=== PATIENT | male | born 1980 | race Caucasian/White ===

== ENCOUNTER 2021-06-09 14:56 | Inpatient (IN) | payer OTHER, SELFPAY ==
[~2021-06-09] VITALS: Ht 167.6 cm; Wt 74.8 kg
[2021-06-09 15:02] VITALS: BP 113/73
--- NOTE | 2021-06-09 15:07 | NUR ---
PT TAKEN TO BED 1.
--- NOTE | 2021-06-09 15:49 | NUR ---
40/M presents to ED with c/o shortness of breath. Patient states for 3 days he has been having worsening cough and shortness of breath. Patient states "it hurts my lungs to breathe." Reports taking Ibuprofen at home with mild relief. Patient appears short of breath and restless, oxygen saturation upon arrival to ED in the 70s. Dr. Bermudez, RT and RN at bedside, patient placed on highflow oxygen and placed on bedside monitor car operator.
[2021-06-09 16:10] LABS: BASOPHILS # (AUTO) 0.1 K/uL (0.00-0.22); BASOPHILS % (AUTO) 0.3 % (0.0-2.0); EOSINOPHILS % (AUTO) 0.1 % (0.0-4.0); HEMATOCRIT 44.7 % (36-52); HEMOGLOBIN 15.6 g/dL (12.0-18.0); LYMPHOCYTES # (AUTO) 0.8 K/uL (2.0-11.5); LYMPHOCYTES % (AUTO) 4.3 % (20.5-51.1); MEAN CORPUSCULAR HEMOGLOBIN 31 pg (27-31); MEAN CORPUSCULAR HGB CONC 35 g/dL (33-37); MEAN CORPUSCULAR VOLUME 88.7 fL (80-94); MONOCYTES # (AUTO) 0.9 K/uL (0.8-1.0); MONOCYTES % (AUTO) 4.8 % (1.7-9.3); NEUTROPHILS % (AUTO) 90.5 % (42.2-75.2); PLATELET COUNT (AUTO) 525 K/uL (140-450); RED BLOOD CELL COUNT(AUTO) 5.03 MIL/uL (4.20-6.10); RED CELL DISTRIBUTION WIDTH 13.4 % (11.6-13.7); WHITE BLOOD COUNT (AUTO) 18.8 K/uL (4.8-10.8)
--- NOTE | 2021-06-09 16:26 | NUR ---
yusra Mayo, flu and RSV swabs collected and walked to lab
[2021-06-09 16:28] LABS: PROTHROMBIN TIME 10.8 secs (10.8-13.4)
[2021-06-09 16:33] LABS: ALBUMIN 2.8 g/dL (3.4-5.0); ANION GAP 16.1 (8-16); CARBON DIOXIDE 25.8 mmol/L (21-32); POTASSIUM 3.9 mmol/L (3.5-5.1); TOTAL BILIRUBIN 0.8 mg/dL (0.0-1.0)
[2021-06-09 16:49] LABS: D-DIMER > 5000 ng/ml (0-400); FIBRINOGEN > 500 mg/dL (200-400)
[2021-06-09] MEDS ORDERED: ACETAMINOPHEN 325 MG TAB PO PRN (16:50)
[2021-06-09] MEDS ORDERED: NACL 0.9% 1,000 ML IV ONE (16:50)
[2021-06-09] MEDS ORDERED: HYDROcodone/APAP 5/325 MG 1 TAB TAB PO PRN (16:50)
[2021-06-09] MEDS ORDERED: LORazepam 2 MG/ML VIAL IVP PRN (16:50)
[2021-06-09] MEDS ORDERED: MORPHINE SULFATE 2 MG/ML SYR IVP PRN (16:50)
[2021-06-09 16:53] LABS: LACTATE DEHYDROGENASE 928 U/L (85-227)
[2021-06-09 17:13] LABS: C-REACTIVE PROTEIN QUANT 27.1 mg/dL (0.0-0.9)
[2021-06-09] MEDS ORDERED: AZITHROMYCIN 500 MG in DEXTROSE 5% 250 ML IV SCH (17:20)
[2021-06-09 17:23] LABS: RSV NEGATIVE (NEGATIVE)
[2021-06-09] MEDS ORDERED: AZITHROMYCIN 500 MG INJ VIAL IV ONE ×2 (17:28→19:33)
[2021-06-09 17:29] LABS: CREATINE KINASE MB 0.5 ng/mL (0-3.6)
--- NOTE | 2021-06-09 17:30 | NUR ---
Patient provided with urinal, states unable to provide urine at this time.
[2021-06-09] MEDS: NACL 0.9% 1,000 ML IV SCH (17:42)
[2021-06-09] MEDS ORDERED: cefTRIAXone 1,000 MG VIAL ONE (17:50)
--- NOTE | 2021-06-09 18:37 | NUR ---
Per patient okay to update girlfriend Meghana on patient condition.
--- NOTE | 2021-06-09 18:45 | NUR ---
Patient will be admitted to care of . Admited to ICU. Will go to room ICU 8. Belongings list completed. Report to Ari.
[2021-06-09 19:15] VITALS: BP 138/82
--- NOTE | 2021-06-09 19:15 | NUR ---
RECIEVED PT ADMISSION FROM ER NURSE, PT BIB VIA GURNEY, ABLE TO AMBULATE TO BEDS, A&OX4, ABLE TO MAKE NEEDS KNOWN AND FOLLOWS COMMANDS, AFEBRILE, VS: BP 138/82 VA 116 SPO2 91% RR 27, ON HF NC 40 LPM FIO2 100%, SKIN WARM DRY AND INTACT, FLACC 0, ABD SOFT AND NON TENDER TO TOUCH, RHONCHI AND CRACKLES UPON AUSCULTATION, RAC 20 G PIV INFUSING NS @ 80MLS/HR, PT ORIENTED TO UNIT, CALL LIGHT PLACED BEDSIDE, PT SHOWING NO SIGNS OF ACUTE DISTRESS, SAFETY MEASURES IN PLACE, WILL CONTINUE WITH CURRENT POC
[2021-06-09 19:30] LABS: APPEARANCE,URINE CLEAR (CLEAR); BILIRUBIN,URINE 1+ (NEGATIVE); BLOOD, URINE NEGATIVE (NEGATIVE); COLOR,URINE DARK YELLOW (YELLOW); LEUKOCYTE ESTERASE ,URINE NEGATIVE (NEGATIVE); NITRITE, URINE NEGATIVE (NEGATIVE); PH,URINE 6.5 (5.0-9.0); UGLUCOSE NEGATIVE (NEGATIVE)
[2021-06-09 19:44] VITALS: BP 138/82
[2021-06-09 20:00] VITALS: BP 126/92
[2021-06-09 20:02] LABS: COARSE GRANULAR CASTS,URINE 0-10 /LPF (None Seen); FINE GRANULAR CASTS,URINE 0-10 /LPF (None Seen); RBC,URINE 0-5 /HPF (0-5); WBC,URINE 0-5 /HPF (0-5)
[2021-06-09] MEDS: AZITHROMYCIN 500 MG in DEXTROSE 5% 250 ML IV SCH (21:06)
[2021-06-09] MEDS: APIXABAN 2.5 MG TAB PO SCH (21:09)
--- NOTE | 2021-06-09 21:10 | NUR ---
ADMINISTERED 2100 MEDICATIONS PER MD ORDERS
--- NOTE | 2021-06-09 23:49 | NUR ---
PT IS DRAWING IN NOTE BOOK, FLACC 0, NO SIGNS OF ACUTE DISTRESS
[2021-06-10] VITALS (8 sets, daily range): BP systolic 119–139; BP diastolic 74–92
--- NOTE | 2021-06-10 01:48 | NUR ---
PT SEEMS TO BE ASLEEP AND SHOWING NO SIGNS OF ACUTE DISTRESS
--- NOTE | 2021-06-10 03:49 | NUR ---
PT APPEARS TO BE ASLEEP AND SHOWING NO SIGNS OF ACUTE DISTRESS
[2021-06-10] MEDS: NACL 0.9% 1,000 ML IV SCH ×2 (05:20→17:42)
[2021-06-10 05:50] LABS: BASOPHILS % (AUTO) 0.2 % (0.0-2.0); HEMATOCRIT 40.8 % (36-52); HEMOGLOBIN 14.2 g/dL (12.0-18.0); LYMPHOCYTES # (AUTO) 1.3 K/uL (2.0-11.5); LYMPHOCYTES % (AUTO) 6.6 % (20.5-51.1); MEAN CORPUSCULAR HEMOGLOBIN 31 pg (27-31); MEAN CORPUSCULAR HGB CONC 35 g/dL (33-37); MEAN CORPUSCULAR VOLUME 88.9 fL (80-94); MONOCYTES # (AUTO) 1.4 K/uL (0.8-1.0); NEUTROPHILS # (AUTO) 16.9 K/uL (1.8-7.7); NEUTROPHILS % (AUTO) 86.2 % (42.2-75.2); PLATELET COUNT (AUTO) 388 K/uL (140-450); RED BLOOD CELL COUNT(AUTO) 4.59 MIL/uL (4.20-6.10); RED CELL DISTRIBUTION WIDTH 13.7 % (11.6-13.7); WHITE BLOOD COUNT (AUTO) 19.6 K/uL (4.8-10.8)
--- NOTE | 2021-06-10 05:59 | NUR ---
PT RESTING, WATCHING TV AND SHOWING NO SIGNS OF ACUTE DISTRESS
[2021-06-10 06:06] LABS: ALBUMIN 2.5 g/dL (3.4-5.0); ANION GAP 15.8 (8-16); CARBON DIOXIDE 24.5 mmol/L (21-32); CREATININE 0.8 mg/dL (0.6-1.3); MAGNESIUM 2.3 mg/dL (1.8-2.4); POTASSIUM 4.3 mmol/L (3.5-5.1); TOTAL BILIRUBIN 0.5 mg/dL (0.0-1.0)
--- NOTE | 2021-06-10 07:19 | NUR ---
ENDORSED TO DAY SHIFT RN FOR CONTINUITY OF CARE
--- NOTE | 2021-06-10 07:30 | NUR ---
REPORT RECEIVED FROM TERRI JANE FOR CONTINUITY OF CARE. PT IS A&OX4, ABLE TO MAKE NEEDS KNOWN AND FOLLOWS COMMANDS. ON HIGH FLOW, NC 40 LPM FIO2 100%, SKIN WARM DRY AND INTACT, DENIES PAIN ABD SOFT AND NON TENDER TO TOUCH, LUNG SOUNDS RHONCHI AND CRACKLES, IV SITE RAC 20 G IV INFUSING NS @ 80MLS/HR. CALL LIGHT WITHIN REACH. SAFETY MEASURES IN PLACE, WILL CONTINUE TO MONITOR.
--- NOTE | 2021-06-10 08:01 | NUR ---
PATIENT HAS BEEN SCREENED AND CATEGORIZED HIGH NUTRITION RISK. PATIENT WILL BE SEEN WITHIN 1-2 DAYS OF ADMISSION. 06/10/21-06/11/[address]
[2021-06-10] MEDS: DEXAMETHASONE 4 MG/ML VIAL IVP SCH (08:53)
[2021-06-10] MEDS: ASPIRIN 81 MG TAB.CHEW PO SCH (08:54)
[2021-06-10] MEDS: APIXABAN 2.5 MG TAB PO SCH ×2 (08:55→20:46)
--- NOTE | 2021-06-10 09:00 | NUR ---
RECEIVED CALL FROM PT'S SIGNIFICANT OTHER SONU(GIRLFRIEND). UPDATED ON PT STATUS, ALL QUESTIONS AND CONCERNS ANSWERED AT THIS TIME. [phone]
--- NOTE | 2021-06-10 09:30 | NUR ---
PT DESATURATING O2 84%, RT CALLED TO BEDSIDE. NO DISTRESS NOTED.
--- NOTE | 2021-06-10 09:34 | NUR ---
CALLED DR. JOHN BORREGO AT [facility] [phone] IN REGARDS TO [facility] THERAPY SPOKE TO MELISSA SHE WILL PAGE THE FOREMENTIONED MD CALL BACK NUMBER GIVEN [phone]
--- NOTE | 2021-06-10 09:44 | NUR ---
CALL BACK FROM DR. JOHN BORREGO REVIEWED PATIENT PULMONARY, COVID, HIGH FLOW AND DIAGNOSTIC STATUS VORBO: [place] FOR CABINETMAKER SUPERVISOR TO PLACE ORDER FOLLOW: [facility] THERAPY Q4PRN FOR SOB/WHEEZE WITH DUONEB
--- NOTE | 2021-06-10 10:20 | NUR ---
DR BRO AT BEDSIDE EXAMINING PT
--- NOTE | 2021-06-10 11:02 | NUR ---
DC PLANNING: SPOKE WITH NADEEN DASILVA FOR [facility], VERBAL CLINICAL INFORMATION GIVEN FOR CONTINUED AUTHORIZATION. CM WILL FOLLOW FOR NEEDS. Addendum: 06/10/21 at 1157 by Randa Prasad RN DC PLANNIN YRS OLD MALE PATIENT WAS ADMITTED FROM HOME WITH A DX OF COVID. PATIENT HAS NO MEDICAL HISTORY. CXR SHOWED BILATERAL PATCHY MULTIFOCAL INFILTRATES, GREATEST IN THE PERIPHERAL MIDLUNG ZONE SUSPICIOUS FOR COVID 19 PNEUMONIA. RAPID COVID TEST NEGATIVE PCR IS PENDING. ON HIGH FLOW OXYGEN 40L/NC FIO2 100% SATING 93% ADMINISTERED IVF IV ABX ROCEPHIN AND AZITHROMYCIN AND DECADRON.CONSULTED WITH JOHNNIE. DC PLAN TO GO HOME WHEN STABLE CM TO FOLLOW Addendum: 06/15/21 at 1431 by Randa Prasad RN DC PLANNING: REMAIN IN ICU ON HF VIA NASAL CANNULA AT 40L/NC WITH FIO2 80% CONTINUE IV ABX AZITHROMYCIN , ROCEPHIN AND DECADRON. PULMO FOLLOWING. DC PLAN TO GO HOME AFTER WEANING OXYGEN CM TO FOLLOW. Addendum: 06/21/21 at 1308 by Randa Prasad RN DC PLANNING: FAXED TO [facility] AND [facility] FOR HOME O2. CM TO FOLLOW Addendum: 06/21/21 at 1324 by Randa Prasad RN DC PLANNING: RECEIVED A CALL FROM [facility] STATED WILL DELIVER THE HOME O2 BETWEEN 2-3 HRS. NOTIFIED JIM LAMA CM TO FOLLOW
--- NOTE | 2021-06-10 13:25 | NUR ---
RECEIVED TORB FOR REGULAR DIET AND VITAMIN C 1000 MG AND MULTIVITAMIN DAILY FROM DR BORREGO.
[2021-06-10] MEDS: ALBUTEROL SULFATE/IPRATROPIU 3 ML SOL IH PRN (14:03)
--- NOTE | 2021-06-10 14:13 | NUR ---
PT AWAKE, ALERT, ABLE TO MAKE NEEDS KNOWN. WILL CONTINUE TO MONITOR.
--- NOTE | 2021-06-10 16:01 | NUR ---
06/10/21 RD INITIAL ASSESSMENT COMPLETED PLEASE REFER TO NUTRITION ASSESSMENT UNDER CARE ACTIVITY FOR ESTIMATED NUTRITIONAL NEEDS. 1. RECOMMEND REGULAR DIET TOLERATED 2. RECOMMENDED ENSURE ONCE DAILY, VITAMIN C 1000 MG DAILY AND MULTIVITAMIN ONCE DAILY 3. RD TO FOLLOW-UP 3-5 DAYS, MODERATE RISK SHY ROSARIO, RD
[2021-06-10] MEDS: AZITHROMYCIN 500 MG in DEXTROSE 5% 250 ML IV SCH (18:42)
[2021-06-10 18:48] LABS: CREATINE KINASE MB 0.8 ng/mL (0-3.6)
--- NOTE | 2021-06-10 19:16 | NUR ---
REPORT GIVEN TO VINAYAK JANE FOR CONTINUITY OF CARE
--- NOTE | 2021-06-10 19:16 | NUR ---
RECEIVED PATIENT FROM AM SHIFT NURSE FOR CONTINUITY OF CARE. ALERT AND ABLE TO MAKE NEEDS KNOWN. RESPIRATIONS EVEN, UNLABORED. CONTINUES ON HFNC 100% 40L WITH O2SAT 93%. S1/S2 AUSCULTATED. NO C/O PAIN. SKIN WARM/DRY. IV SITE TO RIGHT AC 20G PATENT/INTACT, INFUSING FLUIDS WELL. ABDOMEN SOFT, NONTENDER, NONDISTENDED. BOWEL SOUNDS ACTIVE x4 QUADRANTS. PATIENT IS CONTINENT OF B/B. PLAN OF CARE DISCUSSED. FREQUENT VISUAL ROUNDS BY ALL STAFF.
[2021-06-10] MEDS: FAMOTIDINE 20 MG/2 ML VIAL IV SCH (20:46)
[2021-06-10] MEDS: ASCORBIC ACID 500 MG TAB PO SCH (20:46)
--- NOTE | 2021-06-10 21:46 | NUR ---
DUE MEDS GIVEN. PATIENT RESTING COMFORTABLY IN BED WATCHING TV. NO S/S RESPIRATORY DISTRESS. O2SAT 92%.
--- NOTE | 2021-06-10 23:30 | NUR ---
PATIENT RESTING COMFORTABLY IN BED. CONTINUES ON HFNC, O2SAT 97%. NO C/O PAIN. FREQUENT VISUAL CHECKS BY ALL STAFF.
[2021-06-11] VITALS (17 sets, daily range): BP systolic 124–146; BP diastolic 76–99
--- NOTE | 2021-06-11 01:04 | NUR ---
PATIENT USING IS.
--- NOTE | 2021-06-11 03:00 | NUR ---
PATIENT RESTING COMFORTABLY IN BED.
--- NOTE | 2021-06-11 05:00 | NUR ---
PATIENT IS ASLEEP.
[2021-06-11] MEDS: NACL 0.9% 1,000 ML IV SCH ×2 (05:37→18:06)
--- NOTE | 2021-06-11 07:30 | NUR ---
REPORT RECEIVED FROM PM SHIFT RN FOR CONTINUITY OF CARE. PT IS A&OX4, ABLE TO MAKE NEEDS KNOWN AND FOLLOWS COMMANDS. ON HIGH FLOW, NC 40 LPM FIO2 100%, SKIN WARM DRY AND INTACT, DENIES PAIN ABD SOFT AND NON TENDER TO TOUCH, LUNG SOUNDS RHONCHI AND CRACKLES, IV SITE RAC 20 G IV INFUSING NS @ 80MLS/HR. CALL LIGHT WITHIN REACH. SAFETY MEASURES IN PLACE, WILL CONTINUE TO MONITOR.
[2021-06-11] MEDS: ASPIRIN 81 MG TAB.CHEW PO SCH (08:23)
[2021-06-11] MEDS: MULTIVITAMIN/MINERALS 1 TAB PO SCH (08:23)
[2021-06-11] MEDS: ASCORBIC ACID 500 MG TAB PO SCH ×2 (08:23→21:14)
[2021-06-11] MEDS: DEXAMETHASONE 4 MG/ML VIAL IVP SCH (08:24)
[2021-06-11] MEDS: FAMOTIDINE 20 MG/2 ML VIAL IV SCH ×2 (08:24→21:14)
[2021-06-11] MEDS: APIXABAN 2.5 MG TAB PO SCH ×2 (08:25→21:15)
--- NOTE | 2021-06-11 08:52 | NUR ---
PT PROVIDED WITH BREAKFAST, EATING AT THIS TIME.
--- NOTE | 2021-06-11 09:11 | NUR ---
RECEIVED CALL FROM PT'S SIGNIFICANT OTHER SONU(GIRLFRIEND). UPDATED ON PT STATUS, ALL QUESTIONS AND CONCERNS ANSWERED AT THIS TIME.
--- NOTE | 2021-06-11 10:30 | NUR ---
PT AWAKE, ALERT, ON HIGH FLOW NASAL CANNULA. O2 SATURATION 95%. SAFETY PRECAUTIONS IN PLACE. WILL CONTINUE TO MONITOR.
--- NOTE | 2021-06-11 12:30 | NUR ---
PT PROVIDED WITH LUNCH TRAY, EATING AT THIS TIME
--- NOTE | 2021-06-11 15:00 | NUR ---
PT AWAKE, IN BED, RESPIRATIONS EVEN AND UNLABORED. CHEST RISE IS SYMMETRICAL. SAFETY PRECAUTIONS IN PLACE. WILL CONTINUE TO MONITOR.
--- NOTE | 2021-06-11 17:07 | NUR ---
PT HAS EYES CLOSED, RESTING IN BED, RESPIRATIONS EVEN AND UNLABORED. CHEST RISE IS SYMMETRICAL. SAFETY PRECAUTIONS IN PLACE. WILL CONTINUE TO MONITOR.
[2021-06-11] MEDS: AZITHROMYCIN 500 MG in DEXTROSE 5% 250 ML IV SCH (17:52)
--- NOTE | 2021-06-11 19:30 | NUR ---
REPORT GIVEN TO PM SHIFT RN FOR CONTINUITY OF CARE
--- NOTE | 2021-06-11 19:31 | NUR ---
RECEIVED CARE AND REPORT FROM DAYSHIFT RN, PATIENT ALERT AND ORIENTED X4 TO PERSON, PLACE TIME AND EVENT. PATIENT TRACKING WITH EYES UPON ARRIVAL TO BEDSIDE, ABLE TO ANSWER QUESTIONS APPROPRIATELY WHEN COMMUNICATING. PATIENT RESTING HOB 35 DEGREES, OXYGEN SATURATION 92%, RR 24, DENIES SOB OR DIFFICULTY BREATHING WHEN ASKED. PATIENT CONNECTED TO HIGH FLOW NC AT 40 LPM, FIO2 100%, TOLERATING WELL. PATIENT HAS AN IV SITE OF RIGHT ARM AC 20G, NS 0.9% RUNNING AT 80 ML/HR, IV SITE DRY, INTACT AND FLUSHING WELL, NO SIGNS OF INFILTRATION OR PAIN WHEN ASKING PATIENT. PATIENT ABLE TO USE BEDSIDE URINAL WITH RN ASSISTANCE. PATIENT DRY WEIGHT APPROXIMATELY 73.9 KG. PATIENT OFFLOADED FROM PRESSURE POINTS WITH USE OF PILLOWS AND REPOSITIONED Q2 HOURS. BED LOCKED AND LOWERED INTO A POSITION OF SAFETY, CALL LIGHT WITHIN ARMS REACH, PATIENT EDUCATED ON HOW TO USE CALL BUTTON, SAFETY MEASURES IN PLACE, PROMOTING RESTFUL HEALING ENVIRONMENT TO PROMOTE HEALING. WILL CONTINUE TO CLOSELY MONITOR, REASSESS OFTEN AND FREQUENTLY ROUND THROUGHOUT THE SHIFT.
--- NOTE | 2021-06-11 20:51 | NUR ---
SCHEDULED MEDICATIONS GIVEN ORDERED BY MD. WILL CONTINUE TO CLOSELY MONITOR AND FREQUENTLY ROUND.
--- NOTE | 2021-06-11 22:06 | NUR ---
PATIENT VOIDED ONCE WITH RN ASSISTANCE AT BEDSIDE. PATIENT TOLERATING THERAPIES, PATIENT STATES FEELING OK WHILE ON HIGH FLOW NC 40 LPM, FIO2 100%. PATIENT SITTING UP IN THE BED 35 DEGREES, WATCHING THE TV IN POSITION OF COMFORT. WILL CONTINUE TO CLOSELY MONITOR AND FREQUENTLY ROUND.
--- NOTE | 2021-06-11 23:03 | NUR ---
PATIENT FAMILY SONU CALLED, ALL QUESTIONS ANSWERED.
[2021-06-12] VITALS (23 sets, daily range): BP systolic 112–145; BP diastolic 72–100
--- NOTE | 2021-06-12 00:01 | NUR ---
PATIENT SLEEPING IN A POSITION OF COMFORT, HOB 35 DEGREES, HIGH FLOW NC AT 40 LPM, FIO2 100%, OXYGEN SATURATION 97% ON THE MONITOR, HR 88, RR 22, TOLERATING THERAPY WELL. WILL CONTINUE TO CLOSELY MONITOR, REASSESS OFTEN AND FREQUENTLY ROUND.
--- NOTE | 2021-06-12 01:43 | NUR ---
PATIENT CONTINUES TO REST WITH THE HOB 35 DEGREES, PATIENT STATED FEELS FINE WHEN ASKED, DENIES SOB OR PAIN WHEN ASKED AT BEDSIDE. PATIENT OXYGEN SATURATION 96%, RR 20, ON HIGH FLOW NC 40 LPM, FIO2 100%. HR 81, NSR ON THE MONITOR. SAFETY CHECKS IN PLACE, NO OBVIOUS SIGNS OF DISTRESS OBSERVED WHILE AT BEDSIDE. WILL CONTINUE TO CLOSELY MONITOR, REASSESS OFTEN AND FREQUENTLY ROUND.
--- NOTE | 2021-06-12 02:05 | NUR ---
PATIENT FAMILY SONU CALLED AGAIN, ALL QUESTIONS ANSWERED.
--- NOTE | 2021-06-12 03:12 | NUR ---
SAFETY CHECKS/MEASURES IN PLACE, PATIENT CONTINUES TO REST IN A POSITION OF COMFORT, DENIES SOB OR DIFFICULTY BREATHING WHEN ASKED. NO OBVIOUS SIGNS OF DISTRESS OBSERVED WHILE AT BEDSIDE. HIGH FLOW NC 40 LPM, FIO2 100%, RR 21 OXYGEN SATURATION 96%, HR NSR 82. HOB 35 DEGREES, TOLERATING OXYGEN THERAPY WELL. RN ASSISTANCE PROVIDED WITH ALL ADL'S. WILL CONTINUE TO REASSESS OFTEN, CLOSELY MONITOR AND FREQUENTLY ROUND.
--- NOTE | 2021-06-12 04:48 | NUR ---
MORNING CARE, ORAL CARE, DOMENICA CARE, SAFETY CHECKS, GOWN CHANGE, LINEN CHANGE, REPOSITIONING AND EDUCATION PROVIDED. PATIENT ALERT, TRACKING WITH EYES, CONTINUES TO TOLERATE HIGH FLOW NC WELL. RR 24, OXYGEN SATURATION 95%, HOB 35 DEGREES, NSR 90 ON THE MONITOR. WILL REASSESS OFTEN, CLOSELY MONITOR AND FREQUENTLY ROUND.
--- NOTE | 2021-06-12 05:45 | NUR ---
SAFETY CHECKS AND MEASURES, PATIENT RESTING IN A POSITION OF COMFORT, HOB 35 DEGREES, RR 26, OXYGEN SATURATION 94%, HIGH FLOW NC 40 LPM, FIO2 100%, TOLERATING THERAPIES. PATIENT WATCHING THE TV IN THE BED, NO OBVIOUS SIGNS OF DISTRESS OBSERVED WHILE AT BEDSIDE. WILL REASSESS OFTEN, CLOSELY MONITOR AND FREQUENTLY ROUND.
[2021-06-12 05:59] LABS: HEMATOCRIT 38.2 % (36-52); HEMOGLOBIN 12.8 g/dL (12.0-18.0); MEAN CORPUSCULAR HEMOGLOBIN 30 pg (27-31); MEAN CORPUSCULAR HGB CONC 34 g/dL (33-37); MEAN CORPUSCULAR VOLUME 89.9 fL (80-94); PLATELET COUNT (AUTO) 396 K/uL (140-450); RED BLOOD CELL COUNT(AUTO) 4.24 MIL/uL (4.20-6.10); RED CELL DISTRIBUTION WIDTH 13.3 % (11.6-13.7); WHITE BLOOD COUNT (AUTO) 24.1 K/uL (4.8-10.8)
[2021-06-12 06:32] LABS: ANION GAP 9.8 (8-16); CARBON DIOXIDE 26.6 mmol/L (21-32); CREATININE 0.6 mg/dL (0.6-1.3); POTASSIUM 4.4 mmol/L (3.5-5.1)
--- NOTE | 2021-06-12 07:20 | NUR ---
RECEIVED BEDSIDE REPORT FROM CHIEF MEDICAL TECHNOLOGIST NURSE PATIENT SLEEPING SUPINE IN BED, ANSWERS TO NAME. HOB 30 DEGREES BREATHING EVEN ON HIFLO NC 40LPM, 100% FIO2. R AC 20G INFUSING NS @ 80 ML/HR. BASKETBALL COACH IN PLACE, SAFETY MEASURES IN PLACE. ENHANCED AIRBORN PRECAUTIONS FOR COVID 19.
--- NOTE | 2021-06-12 07:22 | NUR ---
REPORT AND CARE ENDORSED TO DAYSHIFT RN, VS STABLE.
[2021-06-12] MEDS: NACL 0.9% 1,000 ML IV SCH ×2 (07:24→20:03)
[2021-06-12] MEDS: FAMOTIDINE 20 MG/2 ML VIAL IV SCH ×2 (08:26→20:42)
[2021-06-12] MEDS: ASPIRIN 81 MG TAB.CHEW PO SCH (08:26)
[2021-06-12] MEDS: DEXAMETHASONE 4 MG/ML VIAL IVP SCH (08:26)
[2021-06-12] MEDS: APIXABAN 2.5 MG TAB PO SCH ×2 (08:28→20:43)
[2021-06-12] MEDS: ASCORBIC ACID 500 MG TAB PO SCH ×2 (08:28→20:42)
[2021-06-12] MEDS: MULTIVITAMIN/MINERALS 1 TAB PO SCH (08:28)
--- NOTE | 2021-06-12 08:48 | NUR ---
ADMINISTERED SCHEDULED MEDS PER MD ORDER. MED EDUCATION PROVIDED, PATIENT VERBALIZES UNDERSTANDING. PATIENT SITTING IN BED AT THIS TIME WITH BREAKFAST TRAY SET UP. PATIENT DENIES PAIN OR ANY SYMPTOMS OR DISCOMFORT. SAFETY MEASURES IN PLACE.
--- NOTE | 2021-06-12 09:50 | NUR ---
PATIENT SLEEPING COMFORTABLY IN BED, TACHYPNIC WITH NO SIGNS OF ACUTE DISTRESS NOTED, EQUAL CHEST RISE AND FALL. ISOBUTYLENE OPERATOR CHIEF IN PLACE. SAFETY MEASURES IN PLACE.
[2021-06-12 10:39] LABS: LYMPHOCYTES % (MANUAL) 4 % (20-46); MONOCYTES % (MANUAL) 9 % (5-12)
--- NOTE | 2021-06-12 11:32 | NUR ---
PATIENT WAS GIVEN INFORMATION ON THE BENEFITS OF PRONING IN BED TOLERATED TO HELP WITH BREATHING. PATIENT VERBALIZES UNDERSTANDING, AGREED AND WAS ASSISTED WITH PRONING. ALL VITALS STABLE, NO SIGNS OF ACUTE DISTRESS NOTED. UPHOLSTERY DEPARTMENT SUPERVISOR AND SAFETY MEASURES IN PLACE. WILL MONITOR CLOSELY.
--- NOTE | 2021-06-12 12:58 | NUR ---
PATIENT ASSISTED BACK TO SUPINE POSITION, PLACED IN HIGH FOWLERS WITH LUNCH READY TO EAT. PATIENT STATES BEING PRONE WENT WELL WITH NO DISTRESS. SAFETY MEASURES IN PLACE. WILL CONTINUE TO MONITOR CLOSELY.
--- NOTE | 2021-06-12 13:00 | NUR ---
TEACH-BACK METHOD WAS USED FOR USE OF IS, PATIENT VERBALIZES UNDERSTANDING AND PROPERLY DISPLAYED USE OF THE IS. HE STATES HE WILL USE IT RECOMMENDED. WILL CONTINUE TO MONITOR. NO SIGNS OF ACUTE DISTRESS NOTED AT THIS TIME.
--- NOTE | 2021-06-12 16:00 | NUR ---
PATIENT AWAKE AND ALERT, WATCHING TV, HIGH FOWLERS. DENIES PAIN OR DISCOMFORT, NO SIGNS OF ACUTE DISTRESS NOTED. SAFETY MEASURES IN PLACE.
--- NOTE | 2021-06-12 18:33 | NUR ---
PATIENT MOTHER AND SISTER AT BEDSIDE SPEAKING WITH PATIENT AT THIS TIME. THEY WILL BE ASSISTING HIM WITH EATING DINNER. PATIENT STABLE, NO SIGNS OF ACUTE DISTRESS NOTED. Addendum: 06/12/21 at 1834 by Lisbeth Collins RN RN INCORRECT PATIENT.
[2021-06-12] MEDS: AZITHROMYCIN 500 MG in DEXTROSE 5% 250 ML IV SCH (18:54)
--- NOTE | 2021-06-12 19:25 | NUR ---
ENDORSED PATIENT TO WELFARE PROJECT MANAGER NURSE FOR CONTINUITY OF CARE, PATIENT STABLE AT THIS TIME.
--- NOTE | 2021-06-12 19:30 | NUR ---
RECEIVED CARE AND REPORT FROM DAYSHIFT RN, PATIENT ALERT AND ORIENTED X4 TO PERSON, PLACE TIME AND EVENT. PATIENT TRACKING WITH EYES UPON ARRIVAL TO BEDSIDE, ABLE TO ANSWER ALL QUESTIONS APPROPRIATELY WHEN COMMUNICATING/ASKED. PATIENT RESTING HOB 30 DEGREES, OXYGEN SATURATION 98%, RR 20, DENIES SOB OR DIFFICULTY BREATHING WHEN ASKED, PATIENT SITTING UPRIGHT AND WATCHING TV IN THE BED. PATIENT CONNECTED TO HIGH FLOW NC AT 40 LPM, FIO2 100%, TOLERATING WELL. PATIENT HAS AN IV SITE OF RIGHT ARM AC 20G, NS 0.9% RUNNING AT 80 ML/HR, IV SITE DRY, INTACT AND FLUSHING WELL, NO SIGNS OF INFILTRATION OR PAIN WHEN ASKING PATIENT. PATIENT ABLE TO USE BEDSIDE URINAL/COMMODE WITH RN ASSISTANCE. PATIENT DRY WEIGHT APPROXIMATELY 73.9 KG. PATIENT OFFLOADED FROM PRESSURE POINTS WITH USE OF PILLOWS AND REPOSITIONED Q2 HOURS. BED LOCKED AND LOWERED INTO A POSITION OF SAFETY, CALL LIGHT WITHIN ARMS REACH, PATIENT EDUCATED ON HOW TO USE CALL BUTTON, SAFETY MEASURES/CHECKS IN PLACE, PROMOTING RESTFUL ENVIRONMENT WITH DECREASED STIMULI TO PROMOTE HEALING. WILL CONTINUE TO CLOSELY MONITOR, REASSESS OFTEN AND FREQUENTLY ROUND THROUGHOUT THE SHIFT.
--- NOTE | 2021-06-12 20:35 | NUR ---
SCHEDULED MEDICATIONS GIVEN ORDERED BY MD, TOLERATING THERAPIES WELL, NO OBVIOUS SIGNS OF DISTRESS OBSERVED WHILE AT BEDSIDE. RR 20, OXYGEN SATURATION 98%. DENIES SOB OR DIFFICULTY BREATHING WHEN ASKED WHILE AT REST. HOB 30 DEGREES, AIRWAY OPEN CLEAR AND MAINTAINABLE. WILL CONTINUE TO CLOSELY MONITOR AND FREQUENTLY ROUND.
--- NOTE | 2021-06-12 21:08 | NUR ---
PATIENT VOIDED ONCE, RN ASSISTANCE PROVIDED.
--- NOTE | 2021-06-12 22:02 | NUR ---
PATIENT RESTING IN A POSITION OF COMFORT, HOB 30 DEGREES, AIRWAY PATENT. WATCHING THE TV, PATIENT STATES HE FEELS FINE WHEN ASKED, DENIES SOB, DIFFICULTY BREATHING OR PAIN WHEN ASKED. NO OBVIOUS SIGNS OF DISTRESS OBSERVED WHILE AT BEDSIDE. CONTINUES TO TOLERATE HIGH FLOW NC 40 LPM, FIO2 100%, RR 18, OXYGEN SATURATION 98%, HR 75 ON THE UNCRATER. WILL CONTINUE TO CLOSELY MONITOR, REASSESS OFTEN AND FREQUENTLY ROUND.
--- NOTE | 2021-06-12 22:49 | NUR ---
PATIENT VOIDED AGAIN, RN ASSISTANCE PROVIDED.
--- NOTE | 2021-06-12 23:21 | NUR ---
PATIENT ASLEEP, HOB 30 DEGREES, AIRWAY OPEN, CLEAR AND MAINTAINABLE. NO OBVIOUS SIGNS OF DISTRESS OBSERVED WHILE AT BEDSIDE. RR 22, OXYGEN SATURATION 95%, HIGH FLOW NC 40 LPM, FIO2 100%. WILL CONTINUE TO CLOSELY MONITOR AND FREQUENTLY ROUND.
[2021-06-13] VITALS (23 sets, daily range): BP systolic 105–149; BP diastolic 68–103
--- NOTE | 2021-06-13 00:02 | NUR ---
PATIENT FAMILY SONU CALLED, ALL QUESTIONS ANSWERED.
--- NOTE | 2021-06-13 01:55 | NUR ---
PATIENT ASLEEP IN A POSITION OF COMFORT, HOB 35 DEGREES, AIRWAY OPEN CLEAR AND MAINTAINABLE, RR 20, OXYGEN SATURATION 97%, NSR ON THE MONITOR HR 79, NO OBVIOUS SIGNS OF DISTRESS OBSERVED WHILE EAT BEDSIDE. PATIENT CONTINUES TO TOLERATE HIGH FLOW NC 40 LPM, FIO2 100%. SAFETY CHECKS/MEASURES IN PLACE, WILL CONTINUE TO CLOSELY MONITOR AND FREQUENTLY ROUND.
--- NOTE | 2021-06-13 03:42 | NUR ---
MORNING CARE, ORAL CARE, DOMENICA CARE, SAFETY CHECKS, GOWN CHANGE, LINEN CHANGE, REPOSITIONING AND EDUCATION PROVIDED. PATIENT ALERT, TRACKING WITH EYES, CONTINUES TO TOLERATE HIGH FLOW NC 40 LPM, FIO2 100% WELL. RR 24, OXYGEN SATURATION 96%, HOB 35 DEGREES, NSR 82 ON THE MONITOR. NO OBVIOUS SIGNS OF DISTRESS OBSERVED WHILE AT BEDSIDE, DENIES SOB OR DIFFICULTY BREATHING WHILE AT REST IN THE BED. WILL REASSESS OFTEN, CLOSELY MONITOR AND FREQUENTLY ROUND.
--- NOTE | 2021-06-13 05:21 | NUR ---
SAFETY CHECKS/MEASURES IN PLACE. PATIENT WATCHING TV IN THE BED, RESTING IN A POSITION OF COMFORT, HOB 35 DEGREES, AIRWAY OPEN, CLEAR AND MAINTAINABLE. DENIES SOB OR DIFFICULTY BREATHING WHEN ASKED, WHILE AT REST. RR 23, OXYGEN SATURATION 96%, HIGH FLOW NC 40 LPM, FIO2 100%, TOLERATING THERAPIES WELL. VS STABLE. NO OBVIOUS SIGNS OF DISTRESS OBSERVED WHILE AT BEDSIDE. WILL CONTINUE TO CLOSELY MONITOR AND FREQUENTLY ROUND.
[2021-06-13 05:53] LABS: BASOPHILS # (AUTO) 0.1 K/uL (0.00-0.22); BASOPHILS % (AUTO) 0.3 % (0.0-2.0); EOSINOPHILS % (AUTO) 0.1 % (0.0-4.0); HEMATOCRIT 39.7 % (36-52); HEMOGLOBIN 13.3 g/dL (12.0-18.0); LYMPHOCYTES # (AUTO) 1.5 K/uL (2.0-11.5); MEAN CORPUSCULAR HEMOGLOBIN 31 pg (27-31); MEAN CORPUSCULAR HGB CONC 34 g/dL (33-37); MEAN CORPUSCULAR VOLUME 90.8 fL (80-94); MONOCYTES # (AUTO) 1.9 K/uL (0.8-1.0); MONOCYTES % (AUTO) 8.4 % (1.7-9.3); NEUTROPHILS # (AUTO) 19.1 K/uL (1.8-7.7); PLATELET COUNT (AUTO) 495 K/uL (140-450); RED BLOOD CELL COUNT(AUTO) 4.38 MIL/uL (4.20-6.10); RED CELL DISTRIBUTION WIDTH 13.7 % (11.6-13.7); WHITE BLOOD COUNT (AUTO) 22.5 K/uL (4.8-10.8)
[2021-06-13 06:34] LABS: ALBUMIN 2.5 g/dL (3.4-5.0); ANION GAP 12.8 (8-16); CARBON DIOXIDE 26.4 mmol/L (21-32); CREATININE 0.7 mg/dL (0.6-1.3); POTASSIUM 4.2 mmol/L (3.5-5.1); TOTAL BILIRUBIN 0.5 mg/dL (0.0-1.0)
--- NOTE | 2021-06-13 07:20 | NUR ---
RECEIVED REPORT FROM NIGHTSHIFT NURSE. PATIENT ALERT AND ORIENTED X4 TO PERSON, PLACE TIME AND EVENT. ABLE TO MAKE NEEDS KNOWN. PATIENT RESTING HOB 30 DEGREES, OXYGEN SATURATION 90%, RR 20, DENIES SOB OR DIFFICULTY BREATHING WHEN ASKED, PATIENT SITTING UPRIGHT AND WATCHING TV IN THE BED. PATIENT CONNECTED TO HIGH FLOW NC AT 40 LPM, FIO2 100%, TOLERATING WELL. PATIENT HAS AN IV SITE OF RIGHT ARM AC 20G, NS 0.9% RUNNING AT 80 ML/HR, IV SITE DRY, INTACT AND FLUSHING WELL, NO SIGNS OF INFILTRATION OR PAIN WHEN ASKING PATIENT. PATIENT ABLE TO USE BEDSIDE URINAL/COMMODE WITH RN ASSISTANCE. PATIENT DRY WEIGHT APPROXIMATELY 73.9 KG. SAFETY MEASURES IN PLACE. WILL CONTINUE TO MONITOR
--- NOTE | 2021-06-13 07:25 | NUR ---
ENDORSED CARE AND REPORT TO DAYSHIFT RN, VS STABLE.
[2021-06-13 07:55] LABS: LYMPHOCYTES % (AUTO) 6.5 % (20.5-51.1); NEUTROPHILS % (AUTO) 84.7 % (42.2-75.2)
[2021-06-13] MEDS: FAMOTIDINE 20 MG/2 ML VIAL IV SCH ×2 (08:32→20:52)
[2021-06-13] MEDS: NACL 0.9% 1,000 ML IV SCH ×2 (08:33→20:50)
[2021-06-13] MEDS: ASCORBIC ACID 500 MG TAB PO SCH ×2 (08:35→20:52)
[2021-06-13] MEDS: DEXAMETHASONE 4 MG/ML VIAL IVP SCH (08:35)
[2021-06-13] MEDS: MULTIVITAMIN/MINERALS 1 TAB PO SCH (08:35)
[2021-06-13] MEDS: ASPIRIN 81 MG TAB.CHEW PO SCH (08:36)
[2021-06-13] MEDS: APIXABAN 2.5 MG TAB PO SCH ×2 (08:37→20:52)
--- NOTE | 2021-06-13 08:53 | NUR ---
ADMINISTERED SCHED MED PRESCRIBED PER MD ORDER. MEDICATION EDUCATION PERFORMED. PT VERBALIZED UNDERSTANDING. SAFETY MEASURES IN PLACE. WILL CONTINUE TO MONITOR
--- NOTE | 2021-06-13 09:05 | NUR ---
PT ROGERS BROOKE CALLED AND WANTED AN UPDATE. UPDATE GIVEN. SAFETY MEASURES IN PLACE. WILL CONTINUE TO MONITOR
--- NOTE | 2021-06-13 09:30 | NUR ---
WILL CONTINUE TO TRY TO WEAN HFNC SETTINGS TOLERATED.
--- NOTE | 2021-06-13 09:55 | NUR ---
MOM CALLED AND WANTED AND UPDATE. UPDATE GIVEN. SAFETY MEASURES IN PLACE. WILL CONTINUE TO MONITOR
--- NOTE | 2021-06-13 10:16 | NUR ---
GF EDWARDO OUTSIDE OUT PT ROOM VISITING FOR [address] MEASURES IN PL[address]. WILL CONTINUE TO MONITOR
--- NOTE | 2021-06-13 11:12 | NUR ---
DR. BORREGO AT BEDSIDE ASSESSING PATIENT
--- NOTE | 2021-06-13 12:15 | NUR ---
PT EATING LUNCH. NO SIGNS OF DISTRESS. PT DENIES PAIN, SOB, OR CHEST PAIN. SAFETY MEASURES IN PLACE. WILL CONTINUE TO MONITOR
--- NOTE | 2021-06-13 13:30 | NUR ---
PT ASLEEP IN BED. RESPONSIVE TO VERBAL AND TACTILE STIMULI. NO SIGNS OF DISTRESS. SAFETY MEASURES IN PLACE. WILL CONTINUE TO MONITOR
--- NOTE | 2021-06-13 15:07 | NUR ---
ROGERS BROOKE CALLED AND WANTED AND UPDATE. UPDATE GIVEN. SAFETY MEASURES IN PLACE. WILL CONTINUE TO MONITOR
--- NOTE | 2021-06-13 16:30 | NUR ---
ECHO BEING PERFORMED AT BEDSIDE
--- NOTE | 2021-06-13 17:12 | NUR ---
STEP MOM AND DAD HERE TO VISIT PATIENT FOR 5 MIN OUTSIDE ROOM. SAFETY MEASURES IN PLACE. WILL CONTINUE TO MONITOR
[2021-06-13] MEDS: AZITHROMYCIN 500 MG in DEXTROSE 5% 250 ML IV SCH (18:35)
--- NOTE | 2021-06-13 18:35 | NUR ---
ADMINISTERED SCHED MED PRESCRIBED PER MD ORDER. PT TOLERATED WELL. MEDICATION EDUCATION PERFORMED. PT VERBALIZED UNDERSTANDING. SAFETY MEASURES IN PLACE. WILL CONTINUE TO MONITOR
--- NOTE | 2021-06-13 19:15 | NUR ---
ENDORSED TO NIGHTSHIFT NURSE FOR CONTINUITY OF CARE
--- NOTE | 2021-06-13 19:20 | NUR ---
RECIEVED BEDSIDE ENDORSEMENT FROM DAY SHIFT RN, PT LYING IN BED RESTING WHILE WATCHING TV, A&0X4, ABLE TO FOLLOW SIMPLE COMMANDS AND MAKE NEEDS KNOWN, AFEBRILE, VSS, SR ON MONITOR, HF NC 40LPM FIO2 90%, FAZAL 20 GPIV INFUSING NS @ 80MLS/HR, SKIN WARM DRY AND INTACT, PT SHOWING NO SIGNS OF ACUTE DISTRESS, SAFETY MEASURES IN PLACE, WILL CONTINUE WITH CURRENT POC
--- NOTE | 2021-06-13 20:52 | NUR ---
ADMINISTERED 2100H MEDICATIONS PER MD ORDERS
--- NOTE | 2021-06-13 22:21 | NUR ---
PT APPEARS TO BE ASLEEP AND SHOWING NO SIGNS OF ACUTE DISTRESS
[2021-06-14] VITALS (25 sets, daily range): BP systolic 105–147; BP diastolic 66–98
--- NOTE | 2021-06-14 00:16 | NUR ---
PT IS RESTING AND WATCHING TV, SHOWING NO SIGNS OF ACUTE DISTRESS
[2021-06-14] MEDS: NACL 0.9% 1,000 ML IV SCH ×2 (02:24→21:50)
--- NOTE | 2021-06-14 03:28 | NUR ---
PT APEARS TO BE ASLEEP AND SHOWING NO SIGNS OF ACUTE DISTRESS
[2021-06-14 06:03] LABS: MAGNESIUM 2.1 mg/dL (1.8-2.4); PHOSPHORUS 3.3 mg/dL (2.5-4.9)
--- NOTE | 2021-06-14 07:17 | NUR ---
ENDORSED TO DAY SHIFT RN FOR CONTINUITY OF CARE
--- NOTE | 2021-06-14 07:20 | NUR ---
RECEIVED BEDSIDE ENDORSEMENT FROM BOOKSTORE MANAGER RN, PT LYING IN BED RESTING WHILE WATCHING TV, A&0X4, ABLE TO FOLLOW SIMPLE COMMANDS AND MAKE NEEDS KNOWN, AFEBRILE, VSS, ENHANCED DROPLET PRECAUTION, COVID +. SR ON MONITOR. HF NC 40LPM FIO2 90%. FAZAL 20 G PIV INFUSING NS @ 80MLS/HR. SKIN WARM DRY AND INTACT. PT SHOWING NO SIGNS OF ACUTE DISTRESS. SAFETY MEASURES IN PLACE, BED IN LOW POSITION, BED LOCKED, HEAD OF BED AT 30 DEGREES. WILL CONTINUE TO MONITOR. WILL CONTINUE WITH CURRENT POC.
--- NOTE | 2021-06-14 07:44 | NUR ---
RECEIVED PT ON HIGH FLOW 40L FIO2 TITRATED TO 75% SPO2 NOW 93%. PT IS AWAKE AND ALERT IN BED NOT SOB AND NOT IN ANY DISTRESS. PT ABLE TO SPEAK IN FULL COMPLETE SENTENCES WITHOUT BECOMING SOB. WILL CONTINUE TO MONITOR. NO PRN BREATHING TX INDICATED AT THIS TIME.
--- NOTE | 2021-06-14 09:00 | NUR ---
DR. JOYCE ORONA. UPDATED ON PATIENT STATUS AND CONDITION. AWARE FIO2 AT 75%. WILL CONTINUE TO MONITOR. Addendum: 06/14/21 at 1340 by Ronny Lakhani RN RN DR. MINA ORONA. UPDATED ON PATIENT STATUS AND CONDITION. AWARE FIO2 AT 75%. WILL CONTINUE TO MONITOR.
[2021-06-14] MEDS: ASPIRIN 81 MG TAB.CHEW PO SCH (09:41)
[2021-06-14] MEDS: FAMOTIDINE 20 MG/2 ML VIAL IV SCH ×2 (09:41→20:56)
[2021-06-14] MEDS: APIXABAN 2.5 MG TAB PO SCH ×2 (09:41→20:56)
[2021-06-14] MEDS: DEXAMETHASONE 4 MG/ML VIAL IVP SCH (09:41)
[2021-06-14] MEDS: ASCORBIC ACID 500 MG TAB PO SCH ×2 (09:42→20:57)
[2021-06-14] MEDS: MULTIVITAMIN/MINERALS 1 TAB PO SCH (09:42)
--- NOTE | 2021-06-14 11:05 | NUR ---
CHECKED ON PATIENT. DENIES PAIN. WILL CONTINUE TO MONITOR.
[2021-06-14 11:07] LABS: ANION GAP 12.2 (8-16); CARBON DIOXIDE 26.2 mmol/L (21-32); CREATININE 0.6 mg/dL (0.6-1.3); POTASSIUM 3.4 mmol/L (3.5-5.1)
[2021-06-14 11:10] LABS: BASOPHILS # (AUTO) 0.1 K/uL (0.00-0.22); BASOPHILS % (AUTO) 0.3 % (0.0-2.0); EOSINOPHILS # (AUTO) 0.1 K/uL (0-0.4); EOSINOPHILS % (AUTO) 0.6 % (0.0-4.0); HEMATOCRIT 37.8 % (36-52); HEMOGLOBIN 12.8 g/dL (12.0-18.0); LYMPHOCYTES # (AUTO) 1.7 K/uL (2.0-11.5); LYMPHOCYTES % (AUTO) 7.9 % (20.5-51.1); MEAN CORPUSCULAR HEMOGLOBIN 30 pg (27-31); MEAN CORPUSCULAR HGB CONC 34 g/dL (33-37); MEAN CORPUSCULAR VOLUME 89.5 fL (80-94); MONOCYTES # (AUTO) 1.6 K/uL (0.8-1.0); MONOCYTES % (AUTO) 7.8 % (1.7-9.3); NEUTROPHILS # (AUTO) 17.5 K/uL (1.8-7.7); NEUTROPHILS % (AUTO) 83.4 % (42.2-75.2); PLATELET COUNT (AUTO) 521 K/uL (140-450); RED BLOOD CELL COUNT(AUTO) 4.23 MIL/uL (4.20-6.10); RED CELL DISTRIBUTION WIDTH 13.8 % (11.6-13.7)
--- NOTE | 2021-06-14 13:40 | NUR ---
CHECKED ON PATIENT. MIGUEL PAIN. NO SIGN OF DISTRESS. WILL CONTINUE TO MONITOR.
--- NOTE | 2021-06-14 15:28 | NUR ---
CHECKED ON PATIENT. MIGUEL PAIN. NO SIGN OF DISTRESS. WILL CONTINUE TO MONITOR.
[2021-06-14] MEDS ORDERED: POTASSIUM CHLORIDE 10 MEQ TABER PO PRN (16:30)
--- NOTE | 2021-06-14 19:16 | NUR ---
ENDORSED CARE TO TERRI JANE FOR CONTINUITY OF CARE.
--- NOTE | 2021-06-14 19:25 | NUR ---
RECIEVED BEDSIDE ENDORSEMENT FROM DAY SHIFT RN, PT LYING IN BED RESTING WHILE WATCHING TV, A&0X4, ABLE TO FOLLOW SIMPLE COMMANDS AND MAKE NEEDS KNOWN, AFEBRILE, VSS, SR ON MONITOR, HF NC 40LPM FIO2 75%, RH 24 G PIV INFUSING NS @ 80MLS/HR, SKIN WARM DRY AND INTACT, PT SHOWING NO SIGNS OF ACUTE DISTRESS, SAFETY MEASURES IN PLACE, WILL CONTINUE WITH CURRENT POC
[2021-06-14] MEDS: AZITHROMYCIN 500 MG in DEXTROSE 5% 250 ML IV SCH (19:45)
--- NOTE | 2021-06-14 19:46 | NUR ---
ADMINISTERED 1900H MEDICATION PER MD ORDERS
--- NOTE | 2021-06-14 20:57 | NUR ---
ADMINISTERED 2100H MEDICATIONS PER MD ORDERS
--- NOTE | 2021-06-14 23:10 | NUR ---
PT APPEARS TO BE ASLEEP AND SHOWING NO SIGNS OF ACUTE DISTRESS
[2021-06-15] VITALS (13 sets, daily range): BP systolic 103–150; BP diastolic 51–92
--- NOTE | 2021-06-15 00:16 | NUR ---
PTS GIRLFRSONU DUGAN, CALLED AND WAS UPDATED ON PTS CONDITION
--- NOTE | 2021-06-15 02:37 | NUR ---
PT APPEARS TO BE ASLEEP AND SHOWING NO SIGNS OF ACUTE DISTRESS
--- NOTE | 2021-06-15 04:06 | NUR ---
PT RESTING AND WATCHING TV, FLACC 0, NO SIGNS OF ACUTE DISTRESS
[2021-06-15] MEDS: NACL 0.9% 1,000 ML IV SCH ×2 (04:21→17:56)
--- NOTE | 2021-06-15 07:45 | NUR ---
RECEIVED REPORT FROM TERRI JANE FOR CONTINUITY OF CARE. PT LYING IN BED RESTING WHILE WATCHING TV, A&0X4, ABLE TO FOLLOW SIMPLE COMMANDS AND MAKE NEEDS KNOWN, AFEBRILE, VSS, SR ON MONITOR, HF NC 40LPM FIO2 75%, RH 24 G PIV INFUSING NS @ 80MLS/HR, SKIN WARM DRY AND INTACT, PT SHOWING NO SIGNS OF ACUTE DISTRESS, SAFETY MEASURES IN PLACE, WILL CONTINUE WITH CURRENT POC
[2021-06-15] MEDS: ASPIRIN 81 MG TAB.CHEW PO SCH (09:13)
[2021-06-15] MEDS: MULTIVITAMIN/MINERALS 1 TAB PO SCH (09:13)
[2021-06-15] MEDS: APIXABAN 2.5 MG TAB PO SCH ×2 (09:13→21:05)
[2021-06-15] MEDS: DEXAMETHASONE 4 MG/ML VIAL IVP SCH (09:13)
[2021-06-15] MEDS: ASCORBIC ACID 500 MG TAB PO SCH ×2 (09:13→21:06)
[2021-06-15] MEDS: FAMOTIDINE 20 MG/2 ML VIAL IV SCH ×2 (09:13→21:06)
--- NOTE | 2021-06-15 09:15 | NUR ---
ADMINISTERED SCHEDULED AM MEDICATIONS. ORAL CARE AND HYGIENE CARE PROVIDED. BREAKFAST PROVIDED. PATIENT WATCHING TV. DENIES PAIN OR DISCOMFORT. NO SIGNS OF DISTRESS. WILL CONTINUE TO MONITOR.
[2021-06-15 09:31] LABS: HEMATOCRIT 40.2 % (36-52); HEMOGLOBIN 13.5 g/dL (12.0-18.0); MEAN CORPUSCULAR HEMOGLOBIN 30 pg (27-31); MEAN CORPUSCULAR HGB CONC 34 g/dL (33-37); MEAN CORPUSCULAR VOLUME 88.7 fL (80-94); PLATELET COUNT (AUTO) 584 K/uL (140-450); RED BLOOD CELL COUNT(AUTO) 4.54 MIL/uL (4.20-6.10); RED CELL DISTRIBUTION WIDTH 13.7 % (11.6-13.7); WHITE BLOOD COUNT (AUTO) 23.7 K/uL (4.8-10.8)
[2021-06-15 09:57] LABS: LYMPHOCYTES % (MANUAL) 7 % (20-46); MONOCYTES % (MANUAL) 9 % (5-12)
[2021-06-15 10:21] LABS: ANION GAP 10.4 (8-16); CARBON DIOXIDE 28.7 mmol/L (21-32); CREATININE 0.6 mg/dL (0.6-1.3); POTASSIUM 4.1 mmol/L (3.5-5.1)
--- NOTE | 2021-06-15 10:40 | NUR ---
PAGED MD FOR POSSIBLE TRANSFER. AWAITING CALL BACK.
--- NOTE | 2021-06-15 10:45 | NUR ---
DR. GLORIA CALLED BACK. AWARE OF PATIENT CONDITION AND STATUS. AWARE BP AND SPO2 STABLE. PATIENT TRANSFERRED TO TELEMETRY.
--- NOTE | 2021-06-15 11:10 | NUR ---
TELEMETRY AWARE PATIENT WILL BE TRANSFERRED. PATIENT WILL BE IN ROOM 118. AWAITING TO GIVE NURSE REPORT. WILL CONTINUE TO MONITOR.
--- NOTE | 2021-06-15 11:50 | NUR ---
IV REMOVED. INSERTED NEW IV ON RIGHT WRIST 22 GAUGE. WILL CONTINUE TO MONITOR.
--- NOTE | 2021-06-15 14:10 | NUR ---
REPORT GIVEN TO TELEMETRY NURSE ELIZABET FOR CONTINUITY OF CARE. ALL QUESTIONS ANSWERED. WILL CONTINUE TO MONITOR.
--- NOTE | 2021-06-15 15:13 | NUR ---
06/15/21 RD FOLLOW UP COMPLETED PLEASE REFER TO NUTRITION ASSESSMENT UNDER CARE ACTIVITY FOR ESTIMATED NUTRITIONAL NEEDS. 1. RECOMMEND REGULAR DIET TOLERATED 2. RECOMMENDED ENSURE ONCE DAILY, VITAMIN C 1000 MG DAILY AND MULTIVITAMIN ONCE DAILY 3. RD TO FOLLOW-UP 5-7 DAYS, LOW RISK SHY ROSARIO, RD
--- NOTE | 2021-06-15 15:30 | NUR ---
TRANSFERRED PATIENT TO TELEMETRY ROOM 118. ALL BELONGINGS AND MEDICATIONS WITH PATIENT. FAMILY NOTIFIED.
--- NOTE | 2021-06-15 15:35 | NUR ---
PATIENT ARRIVE TO UNIT VIA GURNEY. PATIENT AWAKE AND ALERT. BREATHING IS EVEN AND UNLABORED. NO ACUTE DISTRESS NOTED. VS BP 113/80, HR 102, 88% O2, TEMP 98.1. PATIENT DENIES PAIN AT THIS TIME. SKIN IS WARM, DRY, AND CLEAN TO TOUCH. PATIENT ABLE TO MOVE ALL EXTREMITIES. PATIENT STATE FEELING WEAK. BEDSIDE COMMODE AND URINAL PROVIDED. PATIENT EDUCATED TO ROOM ENVRIONMENT. CALL LIGHT WITH REACH. ALL SAFETY MEASURES IN PLACE. WILL CONTINUE TO MONITOR.
--- NOTE | 2021-06-15 17:35 | NUR ---
PATIENT AWAKE WATCHING TV. NO ACUTE DISTRESS NOTED. ALL SAFETY MEASURES IN PLACE. WILL CONTINUE MONITOR.
[2021-06-15] MEDS: AZITHROMYCIN 500 MG in DEXTROSE 5% 250 ML IV SCH (19:09)
--- NOTE | 2021-06-15 19:25 | NUR ---
RECEIVED REPORT FROM AM RN. PATIENT IS IN BED RESTING. NO SOB NOTED. RESPIRATION EVEN UNLABORED. WITH HI- FLOW OXYGEN ON. IVF NS INFUSING AT 80 ML/HR ON THE RIGHT WRIST TOLERATING WELL. SAFETY MEASURES IN PLACE. CALL LIGHT WITHIN REACH. NO COMPLAINTS OF PAIN AT THIS TIME. WILL CONTINUE TO MONITOR.
--- NOTE | 2021-06-15 19:25 | NUR ---
GAVE REPORT TO WATCH DIAL MAKER NURSE FOR CONTINUITY OF CARE. PATIENT STABLE. ALL SAFETY MEASURES IN PLACE.
--- NOTE | 2021-06-15 21:06 | NUR ---
DUE MEDICATIONS GIVEN ORDERED.
[2021-06-16] VITALS (7 sets, daily range): BP systolic 99–122; BP diastolic 67–78
--- NOTE | 2021-06-16 03:02 | NUR ---
PATIENT IS SLEEPING. NO S/S OF RESPIRATORY DISTRESS. ALL SAFETY PRECAUTIONS IN PLACE. CALL LIGHT WITHIN REACH.
--- NOTE | 2021-06-16 05:15 | NUR ---
MADE ROUNDS , ASK PATIENT HOW HE IS DOING, VERBALIZES I'M GETTING BETTER. PT WITH EPISODES OF COUGHING.
--- NOTE | 2021-06-16 07:34 | NUR ---
ENDORSED TO THE AM RN FOR CONTINUITY OF CARE. PATIENT IS STABLE.
--- NOTE | 2021-06-16 07:36 | NUR ---
RECEIVED REPORT FROM BUTT PRESSER NURSE RN FOR CONTINUITY OF CARE. PT LYING IN BED RESTING WHILE WATCHING TV, A&0X4, ABLE TO FOLLOW SIMPLE COMMANDS AND MAKE NEEDS KNOWN. RESPIRATIONS EVEN AND UNLABORED. NO RESPIRATORY DISTRESS NOTED. ON HF NC 40LPM FIO2 60% WITH O2 SATURATION AT 94%. HAS R WRIST 22 G. IV INFUSING NS @ 80MLS/HR, SKIN WARM DRY AND INTACT, PT DENIES PAIN. PLAN OF CARE DISCUSSED. SAFETY MEASURES IN PLACE, CALL LIGHT WITHIN REACH. WILL CONTINUE TO MONITOR.
[2021-06-16] MEDS: FAMOTIDINE 20 MG/2 ML VIAL IV SCH ×2 (08:59→20:17)
[2021-06-16] MEDS: ASPIRIN 81 MG TAB.CHEW PO SCH (08:59)
[2021-06-16] MEDS: DEXAMETHASONE 4 MG/ML VIAL IVP SCH (08:59)
[2021-06-16] MEDS: ASCORBIC ACID 500 MG TAB PO SCH ×2 (09:00→20:17)
[2021-06-16] MEDS: MULTIVITAMIN/MINERALS 1 TAB PO SCH (09:00)
[2021-06-16] MEDS: APIXABAN 2.5 MG TAB PO SCH ×2 (09:02→20:18)
--- NOTE | 2021-06-16 09:25 | NUR ---
RECEIVED PT ON HIGH FLOW NC 40 L 60% FIO2, PT AWAKE AND ALERT NOT IN ANY DISTRESS AT THIS TIME. WILL CONTINUE TO MONITOR.
--- NOTE | 2021-06-16 09:40 | NUR ---
ALL SCHEDULED MEDICATIONS GIVEN. PT IS STABLE. NO DISTRESS NOTED AND DENIES PAIN. WILL CONTINUE TO MONITOR.
[2021-06-16] MEDS: NACL 0.9% 1,000 ML IV SCH ×2 (11:20→23:50)
--- NOTE | 2021-06-16 12:00 | NUR ---
CHECKED ON PATIENT. PATIENT IS ASLEEP. NOTED CHEST RISE AND FALL. NO DISTRESS NOTED. WILL CONTINUE TO MONITOR.
--- NOTE | 2021-06-16 13:29 | NUR ---
RT AT PATIENT'S BEDSIDE
--- NOTE | 2021-06-16 13:31 | NUR ---
FIO2 TITRATED TO 55%. SPO2 91%. PT NOT SOB. WILL CONTINUE TO MONITOR.
--- NOTE | 2021-06-16 15:15 | NUR ---
CHECKED ON PATIENT. PATIENT IS STABLE. NO DISTRESS NOTED. WILL CONTINUE TO MONITOR.
[2021-06-16 16:47] LABS: BASOPHILS % (AUTO) 0.2 % (0.0-2.0); HEMATOCRIT 40.1 % (36-52); HEMOGLOBIN 13.5 g/dL (12.0-18.0); LYMPHOCYTES # (AUTO) 0.7 K/uL (2.0-11.5); LYMPHOCYTES % (AUTO) 4.5 % (20.5-51.1); MEAN CORPUSCULAR HEMOGLOBIN 30 pg (27-31); MEAN CORPUSCULAR HGB CONC 34 g/dL (33-37); MONOCYTES % (AUTO) 6.5 % (1.7-9.3); NEUTROPHILS # (AUTO) 13.8 K/uL (1.8-7.7); NEUTROPHILS % (AUTO) 88.8 % (42.2-75.2); PLATELET COUNT (AUTO) 634 K/uL (140-450); RED BLOOD CELL COUNT(AUTO) 4.45 MIL/uL (4.20-6.10); RED CELL DISTRIBUTION WIDTH 13.8 % (11.6-13.7); WHITE BLOOD COUNT (AUTO) 15.5 K/uL (4.8-10.8)
--- NOTE | 2021-06-16 17:05 | NUR ---
CHECKED ON PATIENT. PATIENT IS STABLE. NO DISTRESS NOTED. WILL CONTINUE TO MONITOR.
[2021-06-16 17:18] LABS: ANION GAP 9.5 (8-16); CREATININE 0.7 mg/dL (0.6-1.3); POTASSIUM 4.5 mmol/L (3.5-5.1)
[2021-06-16] MEDS: AZITHROMYCIN 500 MG in DEXTROSE 5% 250 ML IV SCH (19:12)
--- NOTE | 2021-06-16 19:12 | NUR ---
ENDORSED TO CUSTOMS PORT DIRECTOR NURSE FOR CONTINUITY OF CARE. PT IS STABLE.
--- NOTE | 2021-06-16 19:15 | NUR ---
RECEIVED REPORT FROM AM SHIFT NURSE. PATIENT ON BED WELL RESTED. NO S/S OF RESPIRATORY DISTRESS. IVF OF NS @ 80 ML. FI02 AT 55. CALL LIGHT WITHIN REACH. WILL CONTINUE TO MONITOR.
--- NOTE | 2021-06-16 20:22 | NUR ---
ADMINISTERED SCHEDULED MEDICATIONS ORDERED.
[2021-06-17] VITALS: BP 104/61
--- NOTE | 2021-06-17 03:00 | NUR ---
CHECKED PATIENT , SLEEPING NO SOB NOTED. CALL LIGHT WITHIN REACH.
[2021-06-17 04:00] VITALS: BP 121/74
--- NOTE | 2021-06-17 07:17 | NUR ---
ENDORSED TO AM RN FOR CONTINUITY OF CARE. PATIENT IS IN STABLE CONDITION.
--- NOTE | 2021-06-17 07:24 | NUR ---
PT HAS BEEN ENDORSED BY ACCOUNTS RECEIVABLE COORDINATOR NURSE FOR CONTINUITY OF CARE, POC DISCUSSED. PT IS ON DROPLET PRECAUTIONS FOR COVID POSITIVE. PT IS ALERT AND ORIENTED X4. PT HAS INTERMITTENT COUGH BUT NO S/S OF SOB. PT IS ON HIGH FLOW AT 55% AND FI02 AT 40. SATING AT 94%. SKIN INTACT. LAST BOWEL MOVEMENT ON THE 4TH. PT HAS A RIGHT WRIST 22G RUNNING NS AT 80 ML. ALL SAFETY MEASURES IN PLACE, CALL LIGHT WITHIN REACH. WILL CONTINUE TO MONITOR.
[2021-06-17 08:00] VITALS: BP 114/76
--- NOTE | 2021-06-17 08:03 | NUR ---
RECEIVED PT ON HIGH FLOW 40 L FIO2 TITRATED TO 50% , PT IS BED NOT IN ANY DISTRESS OR SOB AT THIS TIME. PT HAS PRODUCTIVE COUGH. PT STATES HIS BREATHING FEELS FINE AT THIS TIME, WILL CONTINUE TO MONITOR.
[2021-06-17] MEDS: FAMOTIDINE 20 MG/2 ML VIAL IV SCH ×2 (08:16→20:23)
[2021-06-17] MEDS: ASCORBIC ACID 500 MG TAB PO SCH ×2 (08:16→20:23)
[2021-06-17] MEDS: ASPIRIN 81 MG TAB.CHEW PO SCH (08:16)
[2021-06-17] MEDS: MULTIVITAMIN/MINERALS 1 TAB PO SCH (08:16)
[2021-06-17] MEDS: DEXAMETHASONE 4 MG/ML VIAL IVP SCH (08:17)
[2021-06-17] MEDS: APIXABAN 2.5 MG TAB PO SCH (08:18)
--- NOTE | 2021-06-17 08:26 | NUR ---
ERICK MEDICATION ADMINISTERED PER MD ORDER, PT EDUCATION PROVIDED. PT VERBALIZED UNDERSTANDING. PT HIGH FLOW DECREASED TO 50%, SATING AT 94%. DENIES SOB. INTERMITTENT COUGH NOTED. PT IV, RIGHT WRIST 22G RUNNING NS@ 80 ML/HR IS PATENT AND INTACT. PT REPORTS ALL NEEDS ARE MET, VERBALIZED THE UNDERSTANDING OF USING THE CALL LIGHT FOR ANY NEEDS OR CONCERNS OR REPORTS OF SOB. CXR SHOWS STABLE APPEARANCE OF MULTIFOCAL PNA COMPATIBLE WITH COVID. ALL SAFETY MEASURES IN PLACE, CALL LIGHT WITHIN REACH. WILL CONTINUE TO MONITOR.
--- NOTE | 2021-06-17 10:34 | NUR ---
ROUNDED ON PT, PT IS RESTING IN BED WITH NO ACUTE S/S PF DISTRESS. PT SHOWS NO S/S OF SOB, ON HFNC 40L AND FI02 50%, SATING AT 94%. ALL SAFETY MEASURES IN PLACE, CALL LIGHT WITHIN REACH .WILL CONTINUE TO MONITOR.
[2021-06-17 12:00] VITALS: BP 111/64
[2021-06-17] MEDS: NACL 0.9% 1,000 ML IV SCH (12:20)
--- NOTE | 2021-06-17 13:17 | NUR ---
ROUNDED ON PT, PT VERBALIZED ALL NEEDS ARE MET AND DOES NOT NEED ANYTHING AT THIS TIME. DENIES PAIN OR SOB. ON HFNC 40L FI02 50% SATING AT 96%. ALL SAFETY MEASURES IN PLACE, CALL LIGHT WITHIN REACH. WILL CONTINUE TO MONITOR.
--- NOTE | 2021-06-17 14:16 | NUR ---
ROUNDED ON PT, PT IS ASLEEP IN BED WITH NO ACUTE S/S OF DISTRESS. PT IS SATING AT 95%. NO S/S OF SOB. ALL SAFETY MEASURES IN PLACE, CALL LIGHT WITHIN REACH. WILL CONTINUE TO MONITOR.
[2021-06-17 16:00] VITALS: BP 106/65
--- NOTE | 2021-06-17 16:04 | NUR ---
PT IS ASLEEP IN BED WITH NO ACUTE S/S OF DISTRESS OR SOB. ALL SAFETY MEASURES IN PLACE, CALL LIGHT WITHIN REACH. WILL CONTINUE TO MONITOR.
--- NOTE | 2021-06-17 18:00 | NUR ---
IV FLUIDS REPLENISHED AND IV ABX STARTED PER MD ORDER. PT EDUCATION PROVIDED. PT VERBALIZED ALL NEEDS ARE MET AT THIS TIME. CALL LIGHT FARZANA LAWRENCE. WILL CONTINUE TO MONITOR.
[2021-06-17] MEDS: AZITHROMYCIN 500 MG in DEXTROSE 5% 250 ML IV SCH (19:03)
--- NOTE | 2021-06-17 19:05 | NUR ---
PT IS STABLE AND WILL BE ENDORSED TO EXTERMINATOR NURSE FOR CONTINUITY OF CARE. POC DISCUSSED
--- NOTE | 2021-06-17 19:15 | NUR ---
RECEIVED BEDSIDE ENDORSEMENT FROM AM SHIFT RN. PATIENT IS AAOX4, ON HIGH FLOW AT 40 L O2 SAT 88%, NO DISTRESS, NO SOB, AMBULATORY, ISO PRECAUTION IN PLACE, IVF INFUSING, SAFETY MEASURES IN PLACE, PLAN OF CARE DISCUSSED, WILL CONTINUE TO MONITOR, CALL LIGHT WITHIN REACH.
--- NOTE | 2021-06-17 19:58 | NUR ---
PT RECEIVED ON HFNC 40L 50% (34*C) WATER 3/4 FULL HFNC PLUGGED INTO RED OUTLET PT AWAKE IN SEMI-FOWLERS WATCHING TV AND DENIES SOB W/ NO DISTRESS NOTED AT THIS TIME WILL CONTINUE TO MONITOR
[2021-06-17 20:00] VITALS: BP 110/69
--- NOTE | 2021-06-17 20:37 | NUR ---
PATIENT IS WATCHING TV. DUE MEDS GIVEN ORDERED, NO A/R NOTED, TOLERATED WELL, O2 SAT 93%, WILL CONTINUE TO MONITOR, CALL LIGHT WITHIN REACH.
--- NOTE | 2021-06-17 22:42 | NUR ---
PT SLEEPING COMFORTABLY W/ NO DISTRESS ON HFNC FIO2 TITRATED TO 48% W/ SPO2 99% 5 MIN POST TITRATION WATER REMAINS 3/4 FULL WILL CONTINUE TO MONITOR
[2021-06-18] VITALS: BP 116/73
[2021-06-18] MEDS: NACL 0.9% 1,000 ML IV SCH ×2 (00:40→14:19)
--- NOTE | 2021-06-18 00:41 | NUR ---
CHECKED PATIENT O2 SAT 96%, NO SOB, CALL LIGHT WITHIN REACH, PATIENT WATCHING TV. IVF INFUSING.
--- NOTE | 2021-06-18 01:06 | NUR ---
PT AWAKE ON HFNC IN SEMI-FOWLERS WATCHING TV PT DENIES SOB W/ NO DISTRESS NOTED CURRENT SPO2 95% AT THIS TIME
--- NOTE | 2021-06-18 03:00 | NUR ---
ASLEEP, O2 SAT 97%, NOTED CHEST RISE, CALL LIGHT WITHIN REACH.
[2021-06-18 04:00] VITALS: BP 108/65
--- NOTE | 2021-06-18 07:15 | NUR ---
PATIENT STABLE, NO DISTRESS, ENDORSED AT BEDSIDE TO AM SHIFT RN.
--- NOTE | 2021-06-18 07:30 | NUR ---
PT RECEIVED FROM FIBER OPTIC ASSEMBLER RN. PT RESTING IN BED EYES OPEN BREATHING UNLABORED. NO S/SX OF DISTRESS. 94% FIO2 40% . ALL SAFETY MEASURES ARE IN PLACE
[2021-06-18 08:00] VITALS: BP 111/74
[2021-06-18] MEDS: MULTIVITAMIN/MINERALS 1 TAB PO SCH (08:35)
[2021-06-18] MEDS: ASPIRIN 81 MG TAB.CHEW PO SCH (08:35)
[2021-06-18] MEDS: FAMOTIDINE 20 MG/2 ML VIAL IV SCH ×2 (08:35→20:33)
[2021-06-18] MEDS: ASCORBIC ACID 500 MG TAB PO SCH ×2 (08:36→20:33)
[2021-06-18] MEDS: DEXAMETHASONE 4 MG/ML VIAL IVP SCH (08:36)
--- NOTE | 2021-06-18 09:20 | NUR ---
MEDICATIONS GIVEN PER MD ORDER. PT EDUCATED AND VERBALIZED UNDERSTANDING. NO S/SX OF DISTRESS AT THIS TIME ALL SAFETY MEASURES ARE IN PLACE.
--- NOTE | 2021-06-18 10:36 | NUR ---
PT EDUCATED TO LAY ON SIDE AND PRONE AND TO INCREASE THE USE OF THE INCENTIVE SPIROMETER , ALL SAFETY MEASURES ARE IN PLACE.
--- NOTE | 2021-06-18 10:36 | NUR ---
SONU CALLED REGARDING CARE.
[2021-06-18 12:00] VITALS: BP 103/55
--- NOTE | 2021-06-18 12:37 | NUR ---
PT ROUNDED ON PTS PHONE [id number] FROM SUPPORT MANAGER , PT STATES HE WANTS TO HAVE BM , IV UNHOOKED, PT INTRUCTED TO KEEP O2 MONITOR WHILE AMBULATING FOR OBSERVATION
--- NOTE | 2021-06-18 12:38 | NUR ---
PT REEDUCATED ON INCENTIVE SPIROMETER
--- NOTE | 2021-06-18 14:18 | NUR ---
PT AMBULATED TO RESTROOM PT AT 90%
--- NOTE | 2021-06-18 15:25 | NUR ---
FASMILY AT WINDOW, BROUGHT PT FOOD, PT ATE ALL TOLERATED WELL.
[2021-06-18 18:00] VITALS: BP 113/73
--- NOTE | 2021-06-18 18:31 | NUR ---
MEDICATIONS GIVEN PER MD ORDER. PT EDUCTED AND VERBALIZED UNDERSTANDING , NO SS/SX OF DISTRESS AT THIS TIME 98%
[2021-06-18] MEDS: AZITHROMYCIN 500 MG in DEXTROSE 5% 250 ML IV SCH (19:07)
--- NOTE | 2021-06-18 19:25 | NUR ---
PT ENDORSED TO SUPERVISOR WATERPROOFING RN, PT IS STABLE
[2021-06-18 20:00] VITALS: BP 107/67
--- NOTE | 2021-06-18 20:00 | NUR ---
RECEIVED PATIENT AWAKE IN BED. PT ON HFNC 40L, 48% FIO2. O2 SAT 94% AT THIS TIME. NO SOB NOTED. PT DENIES ANY DISCOMFORT OR PAIN. CLEAR BUT DIMINISHED LUNG SOUNDS. NO COUGH AT THIS TIME. REINFORCED TEACHING ON TURNING AND PRONING. PT VERBALIZED UNDERSTANDING. BED LOWERED WITH CALL LIGHT WITHIN REACH. WILL CONTINUE TO MONITOR
[2021-06-19] VITALS (8 sets, daily range): BP systolic 102–115; BP diastolic 60–69
--- NOTE | 2021-06-19 00:26 | NUR ---
PT IN SEMI-FOWLERS WATCHING TV PT DENIES SOB W/ NO DISTRESS NOTED
[2021-06-19] MEDS: NACL 0.9% 1,000 ML IV SCH ×3 (01:50→22:00)
--- NOTE | 2021-06-19 03:09 | NUR ---
PT ASLEEP IN BED AT THIS TIME. NO S/S OF DISTRESS NOTED
--- NOTE | 2021-06-19 03:52 | NUR ---
PT AWAKE WATCHING TV IN SEMI-FOWLERS ON HFNC PT DENIES SOB W/ NO DISTRESS NOTED AT THIS TIME WATER HAS BEEN REPLACED WILL CONTINUE TO MONITOR
--- NOTE | 2021-06-19 05:50 | NUR ---
FIO2 TITRATED TO 45% ON HFNC SPO2 99% 10 MIN POST TITRATION PT SLEEPING W/ NO DISTRESS NOTED WILL CONTINUE TO MONITOR
--- NOTE | 2021-06-19 07:10 | NUR ---
RECEIVED BEDSIDE REPORT FROM STITCHER SET UP OPERATOR AUTOMATIC NURSE FOR CONTINUITY OF CARE. PT IS ALERT AND AWAKE, A&OX4. ON HIGH FLOW OXYGEN AT 45%. BREATHING IS UNLABORED. PT IS AMBULATORY TO BEDSIDE COMMODE INDEPENDENTLY. SKIN IS WARM, DRY, AND INTACT. IV IS IN THE RIGHT HAND 22 GAUGE RUNNING NS AT 80 ML PER HOUR PER ORDER. PT IS STABLE. PLAN OF CARE DISCUSSED. DROPLET PRECAUTION IN PLACE FOR COVID POSITIVE RESULT.
--- NOTE | 2021-06-19 07:28 | NUR ---
PATIENT REPORT GIVEN TO AM NURSE. PATIENT ENDORSED IN STABLE CONDITION
[2021-06-19] MEDS: MULTIVITAMIN/MINERALS 1 TAB PO SCH (09:36)
[2021-06-19] MEDS: DEXAMETHASONE 4 MG/ML VIAL IVP SCH (09:37)
[2021-06-19] MEDS: ASPIRIN 81 MG TAB.CHEW PO SCH (09:37)
[2021-06-19] MEDS: FAMOTIDINE 20 MG/2 ML VIAL IV SCH ×2 (09:38→21:43)
[2021-06-19] MEDS: ASCORBIC ACID 500 MG TAB PO SCH ×2 (09:39→21:43)
--- NOTE | 2021-06-19 09:45 | NUR ---
PT IS AWAKE AND ALERT. NO RESPIRATORY DISTRESS NOTED. ON HIGH FLOW OXYGEN AT 45% FIO2. RT AT BEDSIDE, TITRATED OXYGEN TO 40% FIO2. PT TOLERATING IT WELL, O2 SAT IS 90%. IV IS PATENT AND INTACT, INFUSING FLUIDS ORDERED. WILL CONTINUE TO MONITOR.
--- NOTE | 2021-06-19 09:50 | NUR ---
SPOKE TO SONU BROOKE () [phone]. UPDATED HER ON PLAN OF CARE AND ALL QUESTIONS ANSWERED.
[2021-06-19] MEDS: ALBUTEROL SULFATE/IPRATROPIU 3 ML SOL IH PRN (09:51)
--- NOTE | 2021-06-19 09:51 | NUR ---
LOC AWAKE AND ALERT VERBALLY RESPONSIVE RECEIVED ON A VAPOTHERM HIGH FLOW PLUGGED INTO RED OUTLET ON AND FUNCTIONING WELL TOLERATING WITHOUT ADVERSE REACTIONS NOTED TO AN ADULT NASAL HIGH FLOW CANNULA SATURATION 95% ON FIO2 OF 45% POST HHN THERAPY TITRATED FIO2 TO 40% DECREASED FLOW TO 36 LPM APRYL/RN NOTIFIED
--- NOTE | 2021-06-19 11:19 | NUR ---
ROUNDED ON PT. HE IS AWAKE, WATCHING TV IN HIGH FOWLERS POSITION. O2 SAT IS AT 90% ON HIGH FLOW OXYGEN 40% FIO2. EDUCATED PT ON IMPORTANCE OF USING INCENTIVE SPIROMETER AND ALSO PRONING. PT VERBALIZED UNDERSTANDING AND STATED HE WOULD TRY TO PRONE LATER. CALL LIGHT WITHIN REACH. PT STABLE.
--- NOTE | 2021-06-19 13:30 | NUR ---
PT IS AWAKE AND ALERT. SITTING UP IN BED. NO RESPIRATORY DISTRESS NOTED. ON HIGH FLOW OXYGEN WITH BREATHING UNLABORED. PT IS STABLE.
--- NOTE | 2021-06-19 15:41 | NUR ---
ROUNDED ON PT. HE IS A&OX4. STATES THAT HE WAS ABLE TO EAT ALL OF HIS LUNCH. DENIES ANY SOB OR DIFFICULTY BREATHING. PT IS STABLE ON HIGH FLOW 40% FIO2.
--- NOTE | 2021-06-19 16:35 | NUR ---
RESTING WELL EQUAL CHEST RISE GOOD AERATION THROUGHOUT BILATERAL LUNG OCONNOR AIRWAY PATENT SATURATION 98% ON FIO2 OF 40% DECREASED FIO2 TO 32% FLOW TO 30 LPM PROGRAM MANAGER TRANSPORTATION TO MONITOR APRYL/RN NOTIFIED
--- NOTE | 2021-06-19 17:30 | NUR ---
PT IS SLEEPING. NO DISTRESS NOTED. ON HIGH FLOW FIO2 32%. NO COUGHING OR SOB. PT STABLE.
--- NOTE | 2021-06-19 19:10 | NUR ---
ENDORSED PT TO DRIER UNLOADER NURSE FOR CONTINUITY OF CARE. PT IS STABLE. O2 SAT IS 91%. PLAN OF CARE DISCUSSED.
--- NOTE | 2021-06-19 19:30 | NUR ---
RECEIVED REPORT FROM AM NURSE. PATIENT IS RESTING IN BED. NO S/S OF DISTRESS. WITH HI FLOW AT 30L, FIO2 AT 32% TOLERATING WELL WITH O2 SAT AT 91%. IVF NS AT 80 ML/HR ON THE RH. SAFETY PRECAUTIONS IN PLACE. CALL LIGHT WITHIN REACH. WILL CONTINUE TO MONITOR.
--- NOTE | 2021-06-19 20:55 | NUR ---
PT SLEEPING COMFORTABLY ON HFNC WILL CONTINUE TO MONITOR
--- NOTE | 2021-06-19 23:34 | NUR ---
PT AWAKE AND ALERT PT ANGELICA SOB PT IS IN SEMI-FOWLERS WATCHING TV WILL CONTINUE TO MONITOR
[2021-06-20] VITALS: BP 123/81
--- NOTE | 2021-06-20 02:14 | NUR ---
pt sleeping comfortably on hfnc no distress noted will continue to monitor
[2021-06-20] MEDS: NACL 0.9% 1,000 ML IV SCH ×2 (02:50→16:43)
[2021-06-20 04:00] VITALS: BP 110/71
--- NOTE | 2021-06-20 05:59 | NUR ---
PT REMOVED FROM HFNC AND PLACED 13LNC HFNC REMAINS ON STDBY W/ SPO2 96% 10MIN POST PLACING NC ON PT RN AWARE PT DENIES SOB W/ NO DISTRESS NOTED
--- NOTE | 2021-06-20 07:14 | NUR ---
ENDORSED TO AM NURSE FOR CONTINUITY OF CARE. PATIENT IS STABLE.
--- NOTE | 2021-06-20 07:28 | NUR ---
RECEIVED CHANGE OF SHIFT REPORT FROM NIGHT NURSE AT BEDSIDE. PT CONDITION IS STABLE, AA&O X 4. PT ON O2 PER MD ORDER WITH BREATHING UNLABORED. SKIN IS WARM, DRY, INTACT. AMBULATES INDEPENDENTLY. IV IS INTACT WITH NS RUNNING AT 80 IN THE RIGHT HAND 22G. PT IS ON DROPLET PRECAUTIONS FOR COVID POSITIVE DX. POC DISCUSSED.
[2021-06-20 08:00] VITALS: BP 121/77
[2021-06-20] MEDS: ALBUTEROL SULFATE/IPRATROPIU 3 ML SOL IH PRN (08:00)
--- NOTE | 2021-06-20 08:00 | NUR ---
RECEIVED ON SUPPLEMENTAL OXYGEN AT 13 LPM VIA BUBBLE HUMIDIFIER TO NASAL CANNULA TOLERATING WELL WITHOUT COMPLICATIONS NOTED AIRWAY PATENT SATURATION 92% HHN PRN THERAPY GIVEN POST THERAPY DECREASED FIO2 TO 11 LPM NECK FITTER TO MONITOR VAPOTHERM HIGH FLOW TO NASAL CANNULA REMAINS AT BEDSIDE STANDBY
[2021-06-20] MEDS: ASPIRIN 81 MG TAB.CHEW PO SCH (09:50)
[2021-06-20] MEDS: MULTIVITAMIN/MINERALS 1 TAB PO SCH (09:51)
[2021-06-20] MEDS: FAMOTIDINE 20 MG/2 ML VIAL IV SCH ×2 (09:51→21:39)
[2021-06-20] MEDS: DEXAMETHASONE 4 MG/ML VIAL IVP SCH (09:51)
[2021-06-20] MEDS: ASCORBIC ACID 500 MG TAB PO SCH ×2 (09:51→21:39)
--- NOTE | 2021-06-20 10:00 | NUR ---
PERFORMED FREQ ROUNDS. PT CONDITION IS STABLE HE IS AA&O X 4. PT ON O2 11 L NC. PT ON IV FLUIDS ON RIGHT HAND RUNNING PER MD ORDER. SKIN IS WARM, DRY AND INTACT. WILL CONTINUE TO PERFORM FREQ ROUNDS.
--- NOTE | 2021-06-20 11:40 | NUR ---
AWAKE AND ALERT VERBALLY RESPONSIVE NO INDICATION OF SOB NOTED AT THIS TIME EQUAL CHEST RISE BREATH SOUNDS CLEAR BILATERAL WITH GOOD AERATION THROUGHOUT BILATERAL LUNG OCONNOR AIRWAY PATENT TOLERATING BUBBLE HUMIDIFIER TO NASAL CANNULA AT 11 LPM WELL WITHOUT COMPLICATIONS NOTED SATURATION 92% TITRATED FIO2 TO 9LPM WHILE KEEPING SATURATION GREATER THAN 88% SHEAR GRINDER OPERATOR HELPER TO MONITOR APRYL/RN NOTIFIED
[2021-06-20 12:00] VITALS: BP 107/63
--- NOTE | 2021-06-20 12:00 | NUR ---
PT CONDITION IS STABLE. PT AA&O X4, WATCHING TELEVISION. HE IS ON 11 L NC, BREATHING UNLABORED AND REGULAR. PT HAS IV RUNNING PER MD ORDER. IV IS PATENT AND INTACT. PT DENIES PAIN. WILL CONTINUE TO MONITOR PT CONDITION AND PERFORM FREQ ROUNDS.
--- NOTE | 2021-06-20 14:00 | NUR ---
PERFORMED FREQ ROUNDS. PT CONDITION IS STABLE. PT WAS BROUGHT FOOD FROM FAMILY AND IS EATING. PT IS TOLERATING FOOD WELL. PT AA&OX4 ON 9L NC. PT BREATHING IS REGULAR AND UNLABORED. PT HAS IV RUNNING PER MD ORDER. PT DENIES PAIN AND IS STABLE. WILL CONTINUE TO MONITOR AND PERFORM FREQ ROUNDS.
[2021-06-20 16:00] VITALS: BP 120/58
--- NOTE | 2021-06-20 16:00 | NUR ---
PT IS ON NC WITH HUMIDIFIER AT 9L O2. BREATHING IS UNLABORED. PT DOES NOT HAVE A FEVER. NO COUGHING OR SOB. PT USED THE INCENTIVE SPIROMETER ENCOURAGED. PT IS STABLE AT THIS TIME.
--- NOTE | 2021-06-20 17:04 | NUR ---
LOC AWAKE AND ALERT C/O SLIGHT SOB WITH DEEP RESPIRATIONS HHN PRN THERAPY GIVEN AT THIS TIME SATURATION 94% ON FIO2 5 LPM POST HHN THERAPY TITRATED FIO2 TO 4 LPM OUT AND OUT CIGAR MAKER HAND TO MONITOR JIM/BUCK NOTIFIED
--- NOTE | 2021-06-20 18:00 | NUR ---
PERFORMED FREQ ROUNDS. PT IS LAYING IN BED AND SLEEPING. NO APPEARANCE OF DISTRESS OR PAIN. PT ON NC 9L, BREATHING IS UNLABORED AND NORMAL. IVF FLUIDS RUNNING PER MD ORDER. WILL CONTINUE TO MONITOR.
[2021-06-20 18:12] LABS: HEMATOCRIT 38.1 % (36-52); HEMOGLOBIN 12.9 g/dL (12.0-18.0); MEAN CORPUSCULAR HEMOGLOBIN 31 pg (27-31); MEAN CORPUSCULAR HGB CONC 34 g/dL (33-37); PLATELET COUNT (AUTO) 609 K/uL (140-450); RED BLOOD CELL COUNT(AUTO) 4.23 MIL/uL (4.20-6.10); RED CELL DISTRIBUTION WIDTH 13.5 % (11.6-13.7); WHITE BLOOD COUNT (AUTO) 14.6 K/uL (4.8-10.8)
[2021-06-20 18:58] LABS: LYMPHOCYTES % (MANUAL) 5 % (20-46); MONOCYTES % (MANUAL) 9 % (5-12)
--- NOTE | 2021-06-20 19:21 | NUR ---
GAVE CHANGE OF SHIFT REPORT TO NIGHT NURSE AT BEDSIDE. PT CONDITION IS STABLE. PT IS AA&OX4. PT IS ON 9L NC W/ HUMIDIFIER. HE IS BREATHING REGULAR AND UNLABORED. IV IS INTACT AND RUNNING FLUIDS PER MD ORDER. POC DISCUSSED.
--- NOTE | 2021-06-20 19:22 | NUR ---
RECEIVED REPORT FROM AM NURSE. PATIENT IS AAOX4 ON BED WELL RESTED WITH O2 AT 9L NC WITH HUMIDIFIER, TOLERATING WELL. RESPIRATION EVEN NON LABORED. CALL LIGHT WITHIN REACH.
[2021-06-20 19:31] LABS: ALBUMIN 2.7 g/dL (3.4-5.0); ANION GAP 13.9 (8-16); CARBON DIOXIDE 25.7 mmol/L (21-32); CREATININE 0.8 mg/dL (0.6-1.3); POTASSIUM 4.6 mmol/L (3.5-5.1); TOTAL BILIRUBIN 0.3 mg/dL (0.0-1.0)
[2021-06-20 20:00] VITALS: BP 111/65
--- NOTE | 2021-06-20 20:04 | NUR ---
O2 TITRATED TO 7LNC PT SPO2 96% HR 98 AND APPEARS TO BE TOLERATING WELL PT DENIES SOB WILL CONTINUE TO MONITOR AND TITRATE TOLERATED
--- NOTE | 2021-06-20 22:14 | NUR ---
PT SLEEPING ON HFNC SPO2 97% HR 90 WILL CONTINUE TO MONITOR
--- NOTE | 2021-06-20 23:44 | NUR ---
NC TITRATED TO 6L PT TOLERATING WELL AT THIS TIME PT IS AWAKE AND ALERT IN SEMI FOWLERS WATCHING TV PT DENIES SOB W/ NO DISTRESS NOTED WILL CONTINUE TO MONITOR
[2021-06-21] VITALS: BP 117/74
--- NOTE | 2021-06-21 01:44 | NUR ---
PATIENT IS AWAKE, ALERT ON 6L NC TOLERATING WELL. NEEDS ATTENDED TO. DENIES PAIN.
[2021-06-21] MEDS: NACL 0.9% 1,000 ML IV SCH ×4 (03:50→21:00)
[2021-06-21 04:00] VITALS: BP 116/64
--- NOTE | 2021-06-21 07:24 | NUR ---
RECEIVED REPORT FROM LINING PARTS SEWER, PT IS STABLE ON NC AT 6L WITH CHEST RISING AND FALLING EVEN AND UNLABORED. PT SHOWS NO S/S OF ACUTE DISTRESS OR SOB. ALL SAFETY MEASURES IN PLACE. CALL LIGHT WITHIN REACH. WILL CONTINUE TO MONITOR.
[2021-06-21 07:27] LABS: BASOPHILS # (AUTO) 0.1 K/uL (0.00-0.22); BASOPHILS % (AUTO) 0.5 % (0.0-2.0); EOSINOPHILS % (AUTO) 0.1 % (0.0-4.0); HEMATOCRIT 39.6 % (36-52); HEMOGLOBIN 13.4 g/dL (12.0-18.0); LYMPHOCYTES # (AUTO) 1.9 K/uL (2.0-11.5); MEAN CORPUSCULAR HEMOGLOBIN 31 pg (27-31); MEAN CORPUSCULAR HGB CONC 34 g/dL (33-37); MEAN CORPUSCULAR VOLUME 89.6 fL (80-94); MONOCYTES % (AUTO) 10.3 % (1.7-9.3); NEUTROPHILS # (AUTO) 15.4 K/uL (1.8-7.7); NEUTROPHILS % (AUTO) 79.1 % (42.2-75.2); PLATELET COUNT (AUTO) 615 K/uL (140-450); RED BLOOD CELL COUNT(AUTO) 4.41 MIL/uL (4.20-6.10); RED CELL DISTRIBUTION WIDTH 13.9 % (11.6-13.7); WHITE BLOOD COUNT (AUTO) 19.4 K/uL (4.8-10.8)
[2021-06-21 08:00] VITALS: BP 112/77
[2021-06-21 08:16] LABS: ALBUMIN 2.9 g/dL (3.4-5.0); CARBON DIOXIDE 28.2 mmol/L (21-32); CREATININE 0.7 mg/dL (0.6-1.3); POTASSIUM 4.2 mmol/L (3.5-5.1); TOTAL BILIRUBIN 0.3 mg/dL (0.0-1.0)
[2021-06-21] MEDS: MULTIVITAMIN/MINERALS 1 TAB PO SCH (09:03)
[2021-06-21] MEDS: ASCORBIC ACID 500 MG TAB PO SCH ×2 (09:04→21:41)
[2021-06-21] MEDS: ASPIRIN 81 MG TAB.CHEW PO SCH (09:04)
[2021-06-21] MEDS: FAMOTIDINE 20 MG/2 ML VIAL IV SCH ×2 (09:05→21:41)
[2021-06-21] MEDS: DEXAMETHASONE 4 MG/ML VIAL IVP SCH (09:06)
--- NOTE | 2021-06-21 09:21 | NUR ---
ERICK MEDICATION ADMINISTERED PER MD ORDER. PT PROVIDED WITH WATER. PT VERBALIZED ALL NEEDS ARE MET AND VERBALIZED KNOWING TO USE CALL LIGHT. PT HAS BREAKFAST AT BEDSIDE. ALL SAFETY MEASURES IN PLACE, CALL LIGHT WITHIN REACH. WILL CONTINUE TO MONITOR.
[2021-06-21 12:00] VITALS: BP 117/79
--- NOTE | 2021-06-21 13:34 | NUR ---
PT O2 SAT DROPPED TO 87%, PT TOOK MULTIPLE DEEP BREATHS AND UNABLE TO BRING O2 BACK UP. INCREASED FROM 5L TO 6L. O2 SATING AT 92%
--- NOTE | 2021-06-21 15:31 | NUR ---
OXYGEN EQUIPMENT HAS BEEN DROPPED OFF. PLACED IN PATIENTS ROOM. EDUCATED PT ON PLAN FOR DISCHARGE IS TO CONTINUE TO TITRATING THE OXYGEN DOWN WHILE MAINTAINING O2 SATURATION ABOUT 90%. PT VERBALIZED UNDERSTANDING. PT IS CURRENTLY AT 6L SATING AT 91%. PT VERBALIZED ALL NEEDS ARE MET AT THIS TIME. ALL SAFETY MEASURES IN PLACE, CALL LIGHT WITHIN REACH. WILL CONTINUE TO MONITOR.
[2021-06-21 16:00] VITALS: BP 113/68
[2021-06-21] MEDS: ALBUTEROL SULFATE/IPRATROPIU 3 ML SOL IH PRN (16:43)
--- NOTE | 2021-06-21 16:50 | NUR ---
06/21/21 RD FOLLOW UP COMPLETED PLEASE REFER TO NUTRITION ASSESSMENT UNDER CARE ACTIVITY FOR ESTIMATED NUTRITIONAL NEEDS. 1. CONTINUE REGULAR DIET TOLERATED 2. CONTINUE ENSURE ONCE DAILY, VITAMIN C 1000 MG DAILY AND MULTIVITAMIN ONCE DAILY 3. RD TO FOLLOW-UP 5-7 DAYS, LOW RISK SHY ROSARIO, RD
--- NOTE | 2021-06-21 17:12 | NUR ---
SATURATION 88%-89% ON SUPPLEMENTAL OXYGEN AT 4 LPM VIA NC INCREASED FIO2 TO 4.5 LPM TO KEEP SATURATION GREATER THAN 88% JIM/RN NOTIFIED
--- NOTE | 2021-06-21 17:21 | NUR ---
PT ON 5 L NC DUE TO CONTINUOUSLY DROPPING IN O2 SATURATIONS WHEN TRYING TO TITRATE O2 DOWN. PT IS REMAINING STABLE AT 92%. EDUCATION PROVIDED ON DEEP BREATHING AND USING INCENTIVE SPIROMETER.
--- NOTE | 2021-06-21 18:25 | NUR ---
PT IS SATING AT 93% ON 5 L NC. ALL SAFETY MEASURES IN PLACE. CALL LIGHT WITHIN REACH. WILL CONTINUE TO MONITOR.
--- NOTE | 2021-06-21 19:29 | NUR ---
PT ENDORSED TO CASHIER TUBE ROOM IN STABLE CONDITION. POC DISCUSSED.
--- NOTE | 2021-06-21 19:30 | NUR ---
RECEIVED PATIENT FROM AM NURSE FOR CONTINUITY OF CARE. PATIENT IS RESTING IN BED, A/A/O X4. RESPIRATORY EVEN AND UNLABORED, ON 5L OXYGEN NC, O2 SAT 97%. PATIENT DENIES ANY SOB OR TROUBLE BREATHING. SKIN WARM, DRY, NON DIAPHORETIC. IV ON RIGHT WRIST 22G, INTACT AND PATENT, INFUSING FLUID ORDER. PATIENT ABLE TO MAKE NEEDS KNOW. PLAN OF CARE DISCUSSED, PATIENT VERBALIZED UNDERSTANDING. PRECAUTION IN PLACE. CALL LIGHT WITHIN REACH. WILL CONTINUE TO MONITOR.
[2021-06-21 20:00] VITALS: BP 109/60
--- NOTE | 2021-06-21 21:00 | NUR ---
O2 TITRATED TO 4LNC PT TOLERATING WELL SPO2 94% f18 HR 94 10 MIN POST TITRATION RN AWARE WILL CONTINUE TO MONITOR
--- NOTE | 2021-06-21 21:41 | NUR ---
SCHEDULE MEDICATIONS GIVEN WITH EDUCATION, PATIENT VERBALIZED UNDERSTANDING. PATIENT TOLERATED WELL. CALL LIGHT WITHIN REACH. PRECAUTION IN PLACE. WILL CONTINUE TO MONITOR.
[2021-06-22] VITALS: BP 117/79
--- NOTE | 2021-06-22 | NUR ---
PATIENT AMBULATES TO BATHROOM WITH STEADY GAIT INDEPENDENTLY. PATIENT TOLERATED WELL. NO SIGN OF DISTRESS NOTED. PRECAUTION IN PLACE. CALL LIGHT WITHIN REACH. WILL CONTINUE TO MONITOR.
--- NOTE | 2021-06-22 02:00 | NUR ---
ROUND CHECK. PATIENT IS SLEEPING, CHEST RISE AND FALL, O2 95%, NO SIGN OF DISTRESS NOTED. PRECAUTION IN PLACE. CALL LIGHT WITHIN REACH. WILL CONTINUE TO MONITOR.
[2021-06-22 04:00] VITALS: BP 114/75
--- NOTE | 2021-06-22 04:00 | NUR ---
ROUND CHECK. PATIENT IS SLEEPING, CHEST RISE AND FALL NOTED. NO SIGN OF RESPIRATORY DISTRESS, O2 SAT 95%. PRECAUTION IN PLACE. CALL LIGHT WITHIN REACH. WILL CONTINUE TO MONITOR.
--- NOTE | 2021-06-22 06:00 | NUR ---
ROUND CHECK. PATIENT IS SLEEPING, CHEST RISE AND FALL, NO SIGN OF DISTRESS NOTED, O2 SAT 94%. PRECAUTION IN PLACE. CALL LIGHT WITHIN REACH. WILL CONTINUE TO MONITOR.
--- NOTE | 2021-06-22 07:13 | NUR ---
ENDORSED PATIENT TO AM NURSE FOR CONTINUITY OF CARE. PATIENT IS STABLE.
--- NOTE | 2021-06-22 07:27 | NUR ---
RECEIVED REPORT FROM RN DOCUMENTATION NURSE FOR CONTINUITY OF CARE, POC DISCUSSED. PT IS STABLE IN BED RESTING ON 4L NC WITH CHEST RISING AND FALLING EVEN AND UNLABORED. PT IS SATING AT 90%. PT HAS A RIGHT WRIST 22 G RUNNING NS AT 80. PT IS SHOWING SR ON TELE MONITOR. ALL SAFETY MEASURES IN PLACE. CALL LIGHT WITHIN REACH. WILL CONTINUE TO MONITOR
[2021-06-22 07:54] LABS: BASOPHILS # (AUTO) 0.1 K/uL (0.00-0.22); BASOPHILS % (AUTO) 0.5 % (0.0-2.0); EOSINOPHILS % (AUTO) 0.2 % (0.0-4.0); HEMOGLOBIN 13.1 g/dL (12.0-18.0); LYMPHOCYTES # (AUTO) 2.6 K/uL (2.0-11.5); MEAN CORPUSCULAR HEMOGLOBIN 31 pg (27-31); MEAN CORPUSCULAR HGB CONC 35 g/dL (33-37); MEAN CORPUSCULAR VOLUME 88.7 fL (80-94); NEUTROPHILS # (AUTO) 15.4 K/uL (1.8-7.7); NEUTROPHILS % (AUTO) 76.3 % (42.2-75.2); PLATELET COUNT (AUTO) 545 K/uL (140-450); RED BLOOD CELL COUNT(AUTO) 4.28 MIL/uL (4.20-6.10); RED CELL DISTRIBUTION WIDTH 13.6 % (11.6-13.7); WHITE BLOOD COUNT (AUTO) 20.2 K/uL (4.8-10.8)
[2021-06-22 08:00] VITALS: BP 125/76
[2021-06-22 08:05] LABS: ALBUMIN 2.9 g/dL (3.4-5.0); ANION GAP 9.2 (8-16); CREATININE 0.6 mg/dL (0.6-1.3); POTASSIUM 4.2 mmol/L (3.5-5.1); TOTAL BILIRUBIN 0.3 mg/dL (0.0-1.0)
[2021-06-22] MEDS: ALBUTEROL SULFATE/IPRATROPIU 3 ML SOL IH PRN (08:23)
--- NOTE | 2021-06-22 08:24 | NUR ---
LOC AWAKE AND ALERT VERBALLY RESPONSIVE C/O INTERMITTENT SOB EQUAL CHEST RISR AIRWAY PATENT HHN PRN THERAPY GIVEN AT THIS TIME SATURATION 95% ON A BUBBLE HUMIDIFIED OXYGEN AT 4 LPM VIA NC POST THERAPY TOTARTED FIO2 TO 3 LPM ENGINEERING AGENT TO MONITOR JIM/RN NOTIFIED
[2021-06-22] MEDS: MULTIVITAMIN/MINERALS 1 TAB PO SCH (08:52)
[2021-06-22] MEDS: ASPIRIN 81 MG TAB.CHEW PO SCH (08:52)
[2021-06-22] MEDS: ASCORBIC ACID 500 MG TAB PO SCH (08:53)
[2021-06-22] MEDS: DEXAMETHASONE 4 MG/ML VIAL IVP SCH (08:53)
[2021-06-22] MEDS: FAMOTIDINE 20 MG/2 ML VIAL IV SCH (08:53)
--- NOTE | 2021-06-22 09:05 | NUR ---
ERICK MEDICATION ADMINISTERED PER MD ORDER, ALL SAFETY MEASURES IN PLACE. PT EDUCATION PROVIDED, AND PT VERBALIZED HIS UNDERSTANDING. PT IS ON 3L NC, SATING AT 91%. ALL SAFETY MEASURES IN PLACE, CALL LIGHT WITHIN REACH. WILL CONTINUE TO MONITOR.
[2021-06-22] MEDS ORDERED: ASPI81CT95 PO (10:58)
[2021-06-22] MEDS ORDERED: VITC500 PO (10:58)
[2021-06-22] MEDS ORDERED: ACET-1182 PO (10:58)
--- NOTE | 2021-06-22 14:34 | NUR ---
PROVIDED PT WITH MULTIPLE INFORMATIONAL PACKETS REGARDING DECREASING EXPOSER TO OTHERS, S/S TO MONITOR FOR, HOW TO USE OXYGEN TANK, FOLLOW UP WITH MD AND CANDY BAR ATTENDANT, MEDICATIONS TO TAKE. ALL QUESTIONS ARE ANSWERED. PT VOICED CONCERNS ABOUT GETTING HIS GRANDMA SICK BUT EDUCATED ON HOW TO DECREASE RISK BY SOCIAL DISTANCING, CLEANING COMMONLY TOUCH SURFACES, WEARING A MASK, WASHING THEIR HANDS, AND COMMONLY SHARE AREAS HAVING GOOD AIR FLOW. PT VERBALIZED UNDERSTANDING. PT SIGNED DISCHARGE PAPERWORK. PT HAS ALL BELONGINGS WITH HIM AND IS CHANGED. WAITING ON PTS RIDE TO ARRIVE.
--- NOTE | 2021-06-22 14:38 | NUR ---
LOC AWAKE AND ALERT EDUCATION PROVIDED TO PATIENT ON OXYGEN USE VIA E-TANK AND HOME CONCENTRATOR PATIENT UNDERSTOOD HOW TO OPEN E-TANK VIA DE S[place]ZA TO SPINDLE, HOW TO CONNECT OXYGEN NASAL CANNULA(S) AND HOW TO ADJUST FLOW METER; PATIENT UNDERSTOOD HOW TO OPERATE HOME CONCENTRATOR, THREE PRONG PLUG TO ELECTRICAL WALL SOCKET, LOCATING ON AND OFF SWITCH AND ADJUSTING FLOW METER JIM/RN NOTIFIED
--- NOTE | 2021-06-22 14:58 | NUR ---
SPOKE WITH EDWARDO, PTS POC. ANSWERED ALL HER QUESTIONS REGARDING DISCHARGE.
--- NOTE | 2021-06-22 15:18 | NUR ---
DISCHARGE PT TO HOME WITH OXYGEN TANK AND CONCENTRATOR, ADVISED TO FOLLOW UP WITH PRIMARY MD AND [facility], PICKED UP BY FAMILY VIA PRIVATE CAR, PATIENT ALERT, AWAKE ORIENTED, NO DISTRESS NOTED.,
== END 2021-06-22 15:27 | disposition home or self-care (01) | DRG 720 ==
LOC: MED 14:56 → MTU 16:56 → MIC 18:32 → MTU 06-15 16:51
PROVIDERS: ADMIT Hospitalist; ATTEND Hospitalist
DX: A41.9 Sepsis, unspecified organism (principal); U07.1 COVID-19; J96.01 Acute respiratory failure with hypoxia; J12.82 Pneumonia due to coronavirus disease 2019
CPT/HCPCS: 36415; 36600; 71045; 80048; 80053; 81001; 82550; 82553; 82728; 82803; 83605; 83615; 83735; 83880; 84100; 84484; 85025; 85379; 85384; 85610; 85730; 86140; 87040; 87081; 87086; 87420; 87804; 93005; 94640; 96361; 96365; 99291; J0456; J0696; J1100; J3490; J7030; J7060; U0003